=== PATIENT | female | born 1940 | race Caucasian/White ===

== ENCOUNTER → 2016-03-01 | Outpatient (CLI) | payer BC, OTHER ==
[~2016-03-01] MED LIST: AMPI500C9 PO; CALCTAB5 PO; CARBTAB3 PO; CHOL100027 PO; CLC100 PO; FOLI1TAB7 PO; INDO25CA14 PO; LRS10; PRED-301 PO; PRLSR20 PO; ROTI1DIS2; RXC5 PO; SPIR25TA PO; VITAMIN B12 INJ; VLT500 PO; ZOLE5INJ
[2016-03-01 16:23] LABS: BASO % 0.4 %; BASO ABS # 0.03 K/uL (0-0.2); COMPLETE YES; EOS % 0.6 %; HEMATOCRIT 40.9 % (37-47); IG% 0.4 %; LYMPH ABS # 1.67 K/uL (1.2-3.4); MEAN CORPUSCULAR HEMOGLOBIN 31.9 pg (25-34); MEAN CORPUSCULAR HGB CONC 33.3 g/dl (32-36); MEAN PLATELET VOLUME 10.2 fL (7.4-10.4); MONO % 4.9 %; NEUT % 73.7 %; PLATELET COUNT 230 K/uL (130-400); RED BLOOD COUNT 4.26 M/uL (4.2-5.4); WHITE BLOOD COUNT 8.37 K/uL (4.8-10.8)
[2016-03-01 16:34] LABS: BLOOD UREA NITROGEN 22 mg/dl (7-18); BUN/CREATININE RATIO 19.7 (10-20); CALCIUM 9.1 mg/dl (8.5-10.1); CARBON DIOXIDE 27 mmol/L (21-32); CHLORIDE 107 mmol/L (98-107); GLUCOSE 110 mg/dl (70-99); POTASSIUM 4.2 mmol/L (3.5-5.1); SODIUM 142 mmol/L (136-145)
[2016-03-02 07:12] LABS: ESTIMATED AVERAGE GLUCOSE 117 mg/dl; HA1C FLAG Normal (Normal)
== END | disposition home or self-care (01) ==
LOC: C.LAB1850 14:52
PROVIDERS: ATTEND Internal Medicine
DX: R73.9 Hyperglycemia, unspecified (principal); D51.0 Vitamin B12 deficiency anemia due to intrinsic factor deficiency

== ENCOUNTER → 2016-04-21 | Outpatient (CLI) | payer BC, OTHER ==
--- NOTE | 2016-04-21 16:37 | MAMMOGRAPHY REPORT ---
BILATERAL DIGITAL SCREENING MAMMOGRAM WITH CAD: 04/21/2016 CLINICAL HISTORY: Routine screening. Patient has no complaints. TECHNIQUE: Current study was also evaluated with a Computer Aided Detection (CAD) system. Bilatera l CC and MLO views were obtained. COMPARISON: Comparison is made to exams dated: 04/19/2015 mammogram, 12/12/2012 mammogram, 07/06/2010 m ammogram, and 04/08/2009 mammogram - [facility]. BREAST COMPOSITION: There are scattered areas of fibroglandular density in both breasts. FINDINGS: The exam is markedly suboptimal due to the patient's physical condition including being wh eelchair bound; the patient had to be held for all views. The MLO views in particular are suboptima l with nonvisualization of the pectoralis muscles and motion artifact. No suspicious masses, calcifi cations, or areas of architectural distortion are noted in either breast. There has been no signific ant interval change compared to prior exams. Bilateral benign-appearing calcifications are not sign ificantly changed. IMPRESSION: ACR BI-RADS CATEGORY 2: BENIGN Suboptimal exam as described above. There is no mammographic evidence of malignancy. A 1 year scree rosalind mammogram is recommended. The patient will receive written notification of the results. Approximately 10% of breast cancers are not detected with mammography. A negative mammographic repor t should not delay biopsy if a clinically suggestive mass is present. Nikki Cruz M.D. ah/:04/21/2016 15:49:10 Attending Technologist: Albaro Kennedy RT(R)(M), [facility] Income Auditor: Swathi Mccarthy RT(R)(M), [facility] letter sent: Normal 1/2 BI-RADS Code: ACR BI-RADS Category 2: Benign
== END | disposition home or self-care (01) ==
LOC: C.MAMM 14:05
PROVIDERS: ATTEND Internal Medicine
DX: Z12.31 Encounter for screening mammogram for malignant neoplasm of breast (principal)

== ENCOUNTER → 2016-06-16 | Outpatient (CLI) | payer BC, OTHER ==
[2016-06-16 12:45] LABS: URINE APPEARANCE CLEAR (CLEAR); URINE BILIRUBIN NEG (NEG); URINE COLOR DK YELLOW; URINE NITRITE NEG (NEG); URINE PH 6.5 (4.5-7.5); UROBILINOGEN NEG (NEG)
[2016-06-16 12:52] LABS: MANUAL MICROSCOPIC REQUIRED? NO; REVIEW REQ? NO
== END | disposition home or self-care (01) ==
LOC: C.LAB1850 06-15 14:37
PROVIDERS: ATTEND Physician Assistant
DX: R35.0 Frequency of micturition (principal)

== ENCOUNTER → 2016-06-27 | Outpatient (CLI) | payer BC, OTHER ==
[2016-06-27 16:16] LABS: BLOOD UREA NITROGEN 20 mg/dl (7-18); CALCIUM 8.7 mg/dl (8.5-10.1); CARBON DIOXIDE 30 mmol/L (21-32); CHLORIDE 108 mmol/L (98-107); GLUCOSE 105 mg/dl (70-99); POTASSIUM 3.9 mmol/L (3.5-5.1); SODIUM 143 mmol/L (136-145)
== END | disposition home or self-care (01) ==
LOC: C.LAB1850 14:58
PROVIDERS: ATTEND Physician Assistant
DX: M81.0 Age-related osteoporosis without current pathological fracture (principal); R35.0 Frequency of micturition

== ENCOUNTER → 2016-09-04 | Outpatient (CLI) | payer BC, OTHER ==
[2016-09-04 09:29] LABS: BASO % 0.1 %; BASO ABS # 0.01 K/uL (0-0.2); COMPLETE YES; EOS % 0.3 %; IG% 0.3 %; LYMPH % 20.9 %; MEAN CELL VOLUME 97.6 fL (80-100); MEAN CORPUSCULAR HEMOGLOBIN 33.3 pg (25-34); MEAN CORPUSCULAR HGB CONC 34.1 g/dl (32-36); MEAN PLATELET VOLUME 10.2 fL (7.4-10.4); MONO % 4.6 %; NEUT % 73.8 %; PLATELET COUNT 232 K/uL (130-400); WHITE BLOOD COUNT 7.67 K/uL (4.8-10.8)
[2016-09-04 09:56] LABS: BLOOD UREA NITROGEN 20 mg/dl (7-18); BUN/CREATININE RATIO 21.3 (10-20); CALCIUM 9.1 mg/dl (8.5-10.1); CARBON DIOXIDE 26 mmol/L (21-32); CHLORIDE 105 mmol/L (98-107); CHOLESTEROL 204 mg/dl (0-200); CREATININE 0.96 mg/dl (0.60-1.20); GLUCOSE 86 mg/dl (70-99); POTASSIUM 3.8 mmol/L (3.5-5.1); SODIUM 137 mmol/L (136-145); TRIGLYCERIDES 146 mg/dl (0-150); VERY LOW DENSITY LIPOPROT CALC 29 mg/dl
[2016-09-04 10:03] LABS: ESTIMATED AVERAGE GLUCOSE 108 mg/dl; HA1C FLAG Normal (Normal)
[2016-09-04 10:07] LABS: CHOLESTEROL/HDL RATIO 5.2; HDL CHOLESTEROL 39 mg/dl; LDL CHOLESTEROL CALCULATED 136 mg/dl
--- NOTE | 2016-09-08 12:45 | CODING QUERY MEDICAL NECESSITY ---
SUPPORTING DIAGNOSIS NEEDED Dr. Cedeño, A supporting diagnosis is required for the test/procedure performed on this patient in order for us to be reimbursed by the patient's insurance. Please provide a supporting diagnosis for the following test/procedure listed below next to the test name along with your signature. *If there is no additional diagnosis for this patient that would support the following test/procedure please document that below next to the test/procedure. Test(s)/Procedure(s) that require a supporting diagnosis: * 12537 GLYCATED HEMOGLOBIN DIAGNOSIS: DATE OF SERVICE: 09/04/16 Provider Signature: Date: Thank you Curt Castañeda [facility] Once completed, please kindly fax back to [phone] For questions please call [phone]
== END | disposition home or self-care (01) ==
LOC: C.LAB1850 08:37
PROVIDERS: ATTEND Internal Medicine
DX: G82.50 Quadriplegia, unspecified (principal); R73.9 Hyperglycemia, unspecified

== ENCOUNTER → 2017-04-25 | Outpatient (CLI) | payer BC, OTHER ==
[~2017-04-25] MED LIST changes: -FOLI1TAB7 PO; +FOLI1TAB8 PO
== END | disposition home or self-care (01) ==
LOC: C.RDSM 17:54
PROVIDERS: ATTEND Physical Medicine & Rehabilitation Sports Medicine
DX: M25.621 Stiffness of right elbow, not elsewhere classified (principal); M25.511 Pain in right shoulder

== ENCOUNTER → 2017-05-15 | Outpatient (CLI) | payer BC, OTHER ==
--- NOTE | 2017-05-17 08:00 | MAMMOGRAPHY REPORT ---
BILATERAL DIGITAL SCREENING MAMMOGRAM WITH CAD: 05/15/2017 CLINICAL HISTORY: Routine screening. Patient has no complaints. TECHNIQUE: Bilateral CC and MLO 2D mammograms were attempted. The exam is markedly suboptimal as the patient is wheelchair-bound and could not adequately position for the views, particularly the MLO vi ews. Current study was also evaluated with a Computer Aided Detection (CAD) system. COMPARISON: Comparison is made to exams dated: 04/21/2016 mammogram, 12/12/2012 mammogram, 08/22/2011 m ammogram, 07/06/2010 mammogram, and 04/08/2009 mammogram - [facility]. BREAST COMPOSITION: The tissue of both breasts is heterogeneously dense, which may obscure small mas ses. FINDINGS: The exam is markedly suboptimal due to inability of the patient to adequately position for the views, lacking visualization of large amounts of posterior tissue. Within these limitations, the re are benign rim calcifications and mild vascular calcifications in both breasts. No obvious new ma ss, architectural distortion or cluster of suspicious microcalcifications is seen. IMPRESSION: ACR BI-RADS CATEGORY 1: NEGATIVE There is no mammographic evidence of malignancy, within the limitations of the exam, detailed above. A 1 year screening mammogram is recommended. The patient will receive written notification of the re sults. Approximately 10% of breast cancers are not detected with mammography. A negative mammographic report should not delay biopsy if a clinically suggestive mass is present. Tammie Gorman M.D. ay/:05/15/2017 14:25:57 Computational Linguist: Anisa GRAFF(R)(M), [facility] letter sent: Normal 1/2 BI-RADS Code: ACR BI-RADS Category 1: Negative
== END | disposition home or self-care (01) ==
LOC: C.MAMM 13:29
PROVIDERS: ATTEND Internal Medicine
DX: Z12.31 Encounter for screening mammogram for malignant neoplasm of breast (principal)

== ENCOUNTER → 2017-06-25 | Outpatient (CLI) | payer BC, OTHER | END | disposition home or self-care (01) | LOC: C.MAMM 11:21 | PROVIDERS: ATTEND Internal Medicine | DX: M19.90 Unspecified osteoarthritis, unspecified site (principal); Z79.52 Long term (current) use of systemic steroids; M85.80 Other specified disorders of bone density and structure, unspecified site ==

== ENCOUNTER → 2017-06-25 | Outpatient (CLI) | payer BC, OTHER ==
[2017-06-25 09:50] LABS: HEMATOCRIT 43.8 % (37-47); HEMOGLOBIN 14.7 g/dL (12.0-16.0); MEAN CELL VOLUME 97.3 fL (80-100); MEAN CORPUSCULAR HEMOGLOBIN 32.7 pg (25-34); MEAN CORPUSCULAR HGB CONC 33.6 g/dl (32-36); MEAN PLATELET VOLUME 10.2 fL (7.4-10.4); PLATELET COUNT 214 K/uL (130-400); RED CELL DISTRIBUTION WIDTH CV 16.3 % (11.5-14.5); RED CELL DISTRIBUTION WIDTH SD 58.2 fL (36.4-46.3)
[2017-06-25 10:12] LABS: ALBUMIN 3.4 gm/dl (3.4-5.0); ALKALINE PHOSPHATASE 68 U/L (45-117); ALT/SGPT 7 U/L (12-78); AST/SGOT 14 U/L (15-37); BLOOD UREA NITROGEN 18 mg/dl (7-18); CALCIUM 8.9 mg/dl (8.5-10.1); CARBON DIOXIDE 28 mmol/L (21-32); CREATININE 0.99 mg/dl (0.60-1.20); GLUCOSE 91 mg/dl (70-99); SODIUM 137 mmol/L (136-145)
== END | disposition home or self-care (01) ==
LOC: C.LAB1850 08:05
PROVIDERS: ATTEND Internal Medicine
DX: L40.50 Arthropathic psoriasis, unspecified (principal); Z79.899 Other long term (current) drug therapy

== ENCOUNTER → 2017-08-22 | Outpatient (CLI) | payer BC, OTHER ==
--- NOTE | 2017-08-22 17:54 | DIAGNOSTIC IMAGING REPORT ---
C-SPINE ROUTINE 4 OR 5 VIEWS HISTORY: Pain. Neuropathy. M54.12 Cervical radiculopathy at C5 COMPARISON: None. FINDINGS: Findings of complete laminectomy and fusion throughout the complete cervical spine. Extensive corpectomy is present. Vertebral body alignment is anatomic. No significant compromise of the spinal canal. Postoperative changes to the mandible. There is no fracture. No subluxation. Prevertebral soft tissues and the atlantodens interval are intact. IMPRESSION: Extensive postoperative changes consistent with a near complete laminectomy and fusion as well as corpectomy of the cervical spine. No acute process. The above report was generated using voice recognition software. It may contain grammatical, syntax or spelling errors. Electronically signed by: Layo Christie M.D. 08/22/2017 5:53 PM Dictated Date/Time: 08/22/2017 5:51 PM
== END | disposition home or self-care (01) ==
LOC: C.RAD 17:18
PROVIDERS: ATTEND Psychiatry & Neurology Neurology
DX: M54.12 Radiculopathy, cervical region (principal)

== ENCOUNTER → 2017-08-31 | Outpatient (CLI) | payer BC, OTHER | END | disposition home or self-care (01) | LOC: C.LAB 18:49 | PROVIDERS: ATTEND Internal Medicine | DX: N23 Unspecified renal colic (principal) ==

== ENCOUNTER → 2017-09-06 | Outpatient (CLI) | payer BC, OTHER ==
--- NOTE | 2017-09-06 15:34 | DIAGNOSTIC IMAGING REPORT ---
R SHOULDER MIN 2 VIEWS ROUTINE CLINICAL HISTORY: W19.XXXA right shoulder pain status post trauma COMPARISON: April 2017 DISCUSSION: The examination is limited from a technical standpoint. The bones are osteopenic. There is subtle cortical irregularity the humeral head. Nondisplaced fracture cannot be excluded. CT scanning is recommended in follow-up to confirm or refute the presence of a fracture. There are postsurgical changes present within the cervical spine. There is no evidence of dislocation. IMPRESSION: Equivocal nondisplaced humeral head fracture. CT scanning is recommended in follow-up. Electronically signed by: Harry Avendaño M.D. 09/06/2017 3:33 PM Dictated Date/Time: 09/06/2017 3:29 PM
== END | disposition home or self-care (01) ==
LOC: C.RAD1850 15:18
PROVIDERS: ATTEND Physician Assistant
DX: S42.201A Unspecified fracture of upper end of right humerus, initial encounter for closed fracture (principal); W19.XXXA Unspecified fall, initial encounter

== ENCOUNTER → 2017-09-18 | Outpatient (CLI) | payer BC, OTHER ==
[2017-09-18 15:55] LABS: BASO % 0.1 %; BASO ABS # 0.01 K/uL (0-0.2); EOS % 0.1 %; EOS ABS # 0.01 K/uL (0-0.5); HEMATOCRIT 41.7 % (37-47); HEMOGLOBIN 13.8 g/dL (12.0-16.0); IG# 0.05 K/uL (0.00-0.02); LYMPH % 11.5 %; LYMPH ABS # 0.89 K/uL (1.2-3.4); MEAN CELL VOLUME 98.8 fL (80-100); MEAN CORPUSCULAR HEMOGLOBIN 32.7 pg (25-34); MEAN CORPUSCULAR HGB CONC 33.1 g/dl (32-36); MEAN PLATELET VOLUME 10.5 fL (7.4-10.4); MONO % 2.9 %; MONO ABS # 0.22 K/uL (0.11-0.59); NEUT % 84.8 %; NEUT ABS # 6.53 K/uL (1.4-6.5); PLATELET COUNT 203 K/uL (130-400); RED CELL DISTRIBUTION WIDTH CV 16.7 % (11.5-14.5); WHITE BLOOD COUNT 7.71 K/uL (4.8-10.8)
[2017-09-18 16:18] LABS: ALBUMIN 3.4 gm/dl (3.4-5.0); ALKALINE PHOSPHATASE 104 U/L (45-117); ALT/SGPT 8 U/L (12-78); AST/SGOT 11 U/L (15-37); CREATININE 1.03 mg/dl (0.60-1.20)
== END | disposition home or self-care (01) ==
LOC: C.LAB1850 14:17
PROVIDERS: ATTEND Internal Medicine Rheumatology
DX: L40.50 Arthropathic psoriasis, unspecified (principal); Z79.899 Other long term (current) drug therapy; M81.0 Age-related osteoporosis without current pathological fracture; K21.9 Gastro-esophageal reflux disease without esophagitis; S42.291A Other displaced fracture of upper end of right humerus, initial encounter for closed fracture; X58.XXXA Exposure to other specified factors, initial encounter

== ENCOUNTER 2019-01-28 19:38 | Inpatient (IN) ==
[2019-01-28] MEDS ORDERED: SODIUM CHLORIDE 0.9% 500 ML IV ONE (19:57)
[2019-01-28] MEDS ORDERED: PIPERACILL/TAZOBAC CONSULT ACTIVE PRN ×2 (20:00→23:47)
[2019-01-28] MEDS: PIPERACILLIN/TAZOBACTAM 4.5 GM/120 ML BAG IV ONE ×2 (20:18→20:44)
--- NOTE | 2019-01-28 20:20 | XRay Report ---
SINGLE VIEW CHEST CLINICAL HISTORY: Sepsis. FINDINGS: An AP, portable, upright chest radiograph is compared to chest x-ray and chest CT dated . The examination is degraded by portable technique and patient rotation. The heart is enlarg ed noting atherosclerotic calcification of the thoracic aorta. There is mild pulmonary vascular conge stion. Scarring/atelectasis is noted at the lung bases and there is mild chronic elevation of right h emidiaphragm. No airspace consolidation or large pleural effusion is identified. No pneumothorax is s een. The skeletal structures are osteopenic. There are healed left-sided rib fractures. Extensive fus ion hardware is noted in the cervical spine. Degenerative change is noted in the thoracic spine and s houlders. IMPRESSION: 1. Cardiomegaly with evidence of mild congestive failure. 2. No airspace consolidation or large pleural effusion is identified. ACT 112: Negative or not required by law. Electronically signed by: Pedro Lazo M.D. 01/28/2019 8:18 PM
[2019-01-28] MEDS ORDERED: ALBUTEROL 0.083% NEBU SOLN 3 ML VIAL NEB STA (20:39)
--- NOTE | 2019-01-28 20:46 | Emergency Department Note ---
Entered by Charu Cline acting as a scribe for History of Present Illness General Chief complaint: Illness Stated complaint: AMS - PARKINSONS Time Seen by Provider: 01/28/19 19:46 Source: patient and family History of Present Illness Provider complaint: Confusion Onset (ago): hour(s) 6 Location: head (confusion ) and mouth (cough) Pain Consistency: + constant Quality: + constant Associated symptoms: + confusion, + cough and + other (Negative: trouble speaking, trouble with vision ); no chest pain and no headaches The patient is a 78 year old female with past medical history of Parkinson disease, arthritis, HTN, hyperglycemia, anemia, who presents to the ED with complaints of constant confusion that started 6 hours ago. The patients reports the patient has been having a cough since last Sunday. He notes they went to the doctor and they ruled out pneumonia. The reports the patient took Tussin DM for cough today. He states that around 2 oclock today he noticed his was moving around pretty crazy and told him she was having a baby. The patient denies headache, chest pain, trouble speaking, or trouble with vision. . Home Medications Home Medications Medication Instructions Recorded Confirmed Type baclofen 10 mg PO TID 07/29/18 01/28/19 History cyanocobalamin (vitamin B-12) 1,000 mcg IM DIRECTED 07/29/18 01/28/19 History folic acid 1 mg PO QAM 07/29/18 01/28/19 History omeprazole 20 mg PO QAM 07/29/18 01/28/19 History prednisone 5 mg PO QAM 07/29/18 01/28/19 History spironolactone 25 mg PO QAM 07/29/18 01/28/19 History zoledronic tunp-sltdrdku-opryr 5 mg IV DIRECTED 07/29/18 01/28/19 History [Reclast] valacyclovir 500 mg tablet 500 mg PO QAM #90 tab 10/08/18 01/28/19 Rx methotrexate sodium 2.5 mg tablet 17.5 mg PO WEEKLY #84 tab 11/27/18 01/28/19 Rx nitrofurantoin macrocrystal 50 mg 50 mg PO DAILY #60 cap 12/19/18 01/28/19 Rx capsule calcium citrate-vitamin D3 1 tab PO QAM 01/28/19 01/28/19 History [Citracal + D Petites] eemhsuewz-xvqmnktd-pxzxufnoit 1 tab PO 5XD 01/28/19 01/28/19 History [Stalevo 150] cholecalciferol (vitamin D3) 2,000 unit PO BID 01/28/19 01/28/19 History [Vitamin D3] rotigotine [Neupro] 4 mg TRANSDERMAL DAILY 01/28/19 01/28/19 History Allergies Allergy/AdvReac Type Severity Reaction Status Date / Time tetracycline Allergy Mild RASH Verified 01/22/19 15:33 Cephalosporins Allergy Unknown BLOOD Verified 01/22/19 15:33 BLISTERS lactose Allergy Unknown Gastrointestinal Verified 01/22/19 15:33 Upset lanolin Allergy Unknown BURNING Verified 01/22/19 15:33 shellfish derived Allergy Unknown SOB, Verified 01/22/19 15:33 SWELLING nitrofurantoin AdvReac Intermediate GI Verified 01/22/19 15:33 SYMPTOMS-ON OCC cefuroxime AdvReac Unknown G I UPSET Verified 01/22/19 15:33 cinnamon AdvReac Unknown IN RAW Verified 01/22/19 15:33 FORM CAUSES GI UPSET Quinolones AdvReac Unknown "GI Verified 01/22/19 15:33 symptoms" Sulfa (Sulfonamide AdvReac Unknown "GI Verified 01/22/19 15:33 Antibiotics) SYMPTOMS" Past Med/Surg History Medical History Chronic steroid use DAILY X MANY YRS GERD (gastroesophageal reflux disease) Hypotension Osteoporosis Parkinson disease Psoriatic arthritis SOB (shortness of breath) on exertion LIMITED AMBULATION DUE TO PARKINSON'S Stomach ulcer HX-UNDER CONTROL UTI (urinary tract infection) (Resolved) Surgical History H/O elbow surgery RIGHT-RELEASE OF TENDONS History of back surgery CERVICAL X 2-DISECTOMY/RODS PLACEMENT History of cataract surgery LEFT. 08/27/2018. 40mg PROPOFOL GIVEN History of colonoscopy X MULTIPLE History of esophagogastroduodenoscopy (EGD) History of laparotomy OVARIAN CYSTECTOMY Family History Mother Family history of diabetes mellitus Social History Preferred Language: Venezuelan Communication Ability: Effective Fly Frame Tender Required: No Beliefs That Will Affect Care: None Current Living Situation: Spouse Feels Safe at Home: Yes Smoking Status: Never smoker Second Hand Exposure: Yes (MOTHER SMOKED) ; Hx Alcohol Use: Yes (RARELY) Alcohol type: hard liquor Hx Substance Use: No Review of Systems See HPI for pertinent positives & negatives. and A total of 10 systems reviewed and were otherwise negative Physical Exam Vital Signs Vital Signs - 24 hr 01/28/19 19:39 01/28/19 20:17 01/28/19 20:25 Temperature 36.3 C L Temperature Source Oral Pulse Rate 117 H Pulse Rate [Right Finger] 104 H Pulse Rhythm [Right Finger] Regular Pulse Strength [Right Finger] Normal Respiratory Rate 22 30 H 30 H Respiratory Effort / Characteristics Spontaneous Labored Short of Breath Spontaneous Labored Short of Breath Respiratory Depth Normal Normal Respiratory Pattern Tachypnea Tachypnea Blood Pressure [Right Arm] Blood Pressure [Right Thigh] 153/91 H Blood Pressure Mean [Right Arm] Blood Pressure Mean [Right Thigh] 111 Blood Pressure Position [Right Arm] Blood Pressure Position [Right Thigh] Lying Pulse Oximetry 89 L 88 L 93 Oxygen Delivery Method Room Air Room Air Nasal Cannula Oxygen Flow Rate 4 Sepsis Recent Fever Within 48 Hours No Sepsis Action Taken by Nursing No Action Required 01/28/19 20:49 01/28/19 21:18 Temperature Temperature Source Pulse Rate Pulse Rate [Right Finger] 91 H 87 Pulse Rhythm [Right Finger] Regular Pulse Strength [Right Finger] Normal Respiratory Rate 24 20 Respiratory Effort / Characteristics Non-Labored Spontaneous Non-Labored Spontaneous Respiratory Depth Normal Respiratory Pattern Regular Blood Pressure [Right Arm] 102/48 L Blood Pressure [Right Thigh] Blood Pressure Mean [Right Arm] 66 Blood Pressure Mean [Right Thigh] Blood Pressure Position [Right Arm] Lying Blood Pressure Position [Right Thigh] Pulse Oximetry 95 97 Oxygen Delivery Method Nasal Cannula Nasal Cannula Oxygen Flow Rate 4 2 Sepsis Recent Fever Within 48 Hours Sepsis Action Taken by Nursing General: Chronically-ill appearing older female in no acute distress. Responds appropriately to most questions. Mildly confused. HEENT: Normal cephalic atraumatic. Pupils are equal round and reactive to light. Extraocular movements are intact. Oropharynx is pink with moist mucous me mbranes. No swelling of the mouth lips or tongue. Neck: Supple with a midline trachea. No meningeal signs or stiffness, no JVD or bruits. No Stridor. Chest: Clear to auscultation bilaterally. No wheezes or rhonchi. No increased work of breathing. Heart: regular rate and rhythm. Abdomen: Soft nontender, nondistended without rebound guarding or rigidity. Extremities: No cyanosis clubbing or edema. No calf tenderness or asymmetry Spine/Back. Non tender to palpation. No CVA tenderness Skin: Good turgor without rashes. Neurologic exam: Cranial nerves two through 12 are intact. Motor and sensation are intact and symmetrical throughout. Baseline Parkinson's and arthritis but moves all extremities symmetrically. Course Course 1946: The patient was evaluated in room A11B. A complete history and physical exam was performed. 2001: I checked on the patient. It is difficult to get a blood pressure due to the patient thrashing and moving from Parkinson disease. 2019: I checked on the patient. The chest x-ray suggests possible CHF so we cut the fluids down to only 250 rather than 500. The patient will be given a nebulizer. 2039: I checked on the patient and she got her blood work done. The patient received a nebulizer and antibiotics. 2105: I checked on the patient and she looks much better. The patient is calm and her vitals are stable. 2126: I discussed the patients case with Dr. Shanks. He will evaluate the patient for further management. Administered Medications Discontinued Medications Albuterol (Ventolin 0.083% 2.5mg/3ml) 2.5 mg NEB NOW STA Stop: 01/28/19 20:40 Last Admin: 01/28/19 20:46 Dose: 2.5 mg Documented by: [id number] Sodium Chloride (Nss) 500 mls @ 999 mls/hr IV .Q31M ONE Stop: 01/28/19 20:27 Last Infusion: 01/28/19 21:29 Dose: 0 mls/hr Documented by: [id number] Admin: 01/28/19 20:18 Dose: 999 mls/hr Documented by: [id number] Piperacillin Sod/Tazobactam Sod (Zosyn) 4.5 gm in 120 mls @ 240 mls/hr IV NOW ONE Stop: 01/28/19 20:29 Last Infusion: 01/28/19 21:18 Dose: 0 mls/hr Documented by: [id number] Admin: 01/28/19 20:44 Dose: 240 mls/hr Documented by: [id number] Critical Care Time Critical Care Time: Yes Total Critical Care Time: 35 I have personally spent greater than 35 minutes of critical care time in the direct management of this patient. This includes bedside care, interpretation of diagnostic studies, and testing, discussion with consultants, patient, and family members, and other required patient management activities. This 35 minutes is in excess of all separately billable procedures. Medical Decision Making Differential Diagnosis Differential Diagnosis: Sepsis, CHF, influenza, pneumonia, interracial process,, electrolyte and metabolic abnormality Medical Records Attestation: I reviewed the patient's medical records. Home Medications Current Medication List: was personally reviewed by me Laboratory Data Attestation: I reviewed the patient's lab results. Result diagrams: 01/28/19 20:40 01/28/19 20:40 Lab Results 01/28/19 01/28/19 01/28/19 Range/Units 20:24 20:40 20:40 WBC 7.79 (4.8-10.8) K/uL RBC 3.85 L (4.2-5.4) M/uL Hgb 12.9 (12.0-16.0) g/dL Hct 39.0 (37-47) % MCV 101.3 H (80-100) fL MCH 33.5 (25-34) pg MCHC 33.1 (32-36) g/dL RDW Std Deviation 56.7 H (36.4-46.3) fL RDW Coeff of Chandra 15.6 H (11.5-14.5) % Plt Count 178 (130-400) K/uL MPV 9.2 (7.4-10.4) fL Immature Gran % (Auto) 0.3 % Neut % (Auto) 89.6 % Lymph % (Auto) 5.1 % Sterling % (Auto) 4.7 % Eos % (Auto) 0.0 % Baso % (Auto) 0.3 % Immature Gran # (Auto) 0.02 (0.00-0.02) K/uL Neut # (Auto) 6.98 H (1.4-6.5) K/uL Lymph # (Auto) 0.40 L (1.2-3.4) K/uL Sterling # (Auto) 0.37 (0.11-0.59) K/uL Eos # (Auto) 0.00 (0-0.5) K/uL Baso # (Auto) 0.02 (0-0.2) K/uL PT 10.7 (9.0-12.0) Seconds INR 1.0 (0.9-1.1) APTT 25.6 (21.0-31.0) Seconds PTT Ratio 0.9 Sodium (136-145) mmol/L Potassium (3.5-5.1) mmol/L Chloride (98-107) mmol/L Carbon Dioxide (21-32) mmol/L Anion Gap (3-11) BUN (7-18) mg/dl Creatinine (0.6-1.2) mg/dl Est Cr Clr Drug Dosing Est GFR ( Amer) Est GFR (Non-Af Amer) BUN/Creatinine Ratio (10-20) Glucose (70-99) mg/dl Lactate (0.4-2.0) mmol/L Calcium (8.5-10.1) mg/dl Total Bilirubin (0.2-1) mg/dl AST (15-37) U/L ALT (12-78) U/L Alkaline Phosphatase (45-117) U/L Total Protein (6.4-8.2) gm/dl Albumin (3.4-5.0) gm/dl Globulin (2.5-4.0) gm/dl Albumin/Globulin Ratio (0.9-2) Influenza Type A (PCR) Neg for Influ A (Neg) Influenza Type B (PCR) Neg for Influ B (Neg) 01/28/19 01/28/19 Range/Units 20:40 20:40 WBC (4.8-10.8) K/uL RBC (4.2-5.4) M/uL Hgb (12.0-16.0) g/dL Hct (37-47) % MCV (80-100) fL MCH (25-34) pg MCHC (32-36) g/dL RDW Std Deviation (36.4-46.3) fL RDW Coeff of Chandra (11.5-14.5) % Plt Count (130-400) K/uL MPV (7.4-10.4) fL Immature Gran % (Auto) % Neut % (Auto) % Lymph % (Auto) % Sterling % (Auto) % Eos % (Auto) % Baso % (Auto) % Immature Gran # (Auto) (0.00-0.02) K/uL Neut # (Auto) (1.4-6.5) K/uL Lymph # (Auto) (1.2-3.4) K/uL Sterling # (Auto) (0.11-0.59) K/uL Eos # (Auto) (0-0.5) K/uL Baso # (Auto) (0-0.2) K/uL PT (9.0-12.0) Seconds INR (0.9-1.1) APTT (21.0-31.0) Seconds PTT Ratio Sodium 138 (136-145) mmol/L Potassium 4.4 (3.5-5.1) mmol/L Chloride 106 (98-107) mmol/L Carbon Dioxide 29 (21-32) mmol/L Anion Gap 3.0 (3-11) BUN 28 H (7-18) mg/dl Creatinine 1.28 H (0.6-1.2) mg/dl Est Cr Clr Drug Dosing Not Reportable Est GFR ( Amer) 47.0 Est GFR (Non-Af Amer) 40.6 BUN/Creatinine Ratio 21.9 H (10-20) Glucose 148 H (70-99) mg/dl Lactate 1.8 (0.4-2.0) mmol/L Calcium 9.3 (8.5-10.1) mg/dl Total Bilirubin 0.7 (0.2-1) mg/dl AST 15 (15-37) U/L ALT < 6 L (12-78) U/L Alkaline Phosphatase 66 (45-117) U/L Total Protein 6.8 (6.4-8.2) gm/dl Albumin 3.2 L (3.4-5.0) gm/dl Globulin 3.6 (2.5-4.0) gm/dl Albumin/Globulin Ratio 0.9 (0.9-2) Influenza Type A (PCR) (Neg) Influenza Type B (PCR) (Neg) Imaging Data Radiologist's Impression: Radiology results as stated below per my review and the radiologist's interpretation: SINGLE VIEW CHEST CLINICAL HISTORY: Sepsis. FINDINGS: An AP, portable, upright chest radiograph is compared to chest x-ray and chest CT dated 01/22/2019. The examination is degraded by portable technique and patient rotation. The heart is enlarged noting atherosclerotic calci fication of the thoracic aorta. There is mild pulmonary vascular congestion. Scarring/atelectasis is noted at the lung bases and there is mild chronic elevation of right hemidiaphragm. No airspace consolidation or large pleural effusion is identified. No pneumothorax is seen. The skeletal structures are osteopenic. There are healed left-sided rib fractures. Extensive fusion hardware is noted in the cervical spine. Degenerative change is noted in the thoracic spine and shoulders. IMPRESSION: 1. Cardiomegaly with evidence of mild congestive failure. 2. No airspace consolidation or large pleural effusion is identified. ACT 112: Negative or not required by law. Electronically signed by: Pedro Lazo M.D. 01/28/2019 8:18 PM ECG Data Attestation: I personally reviewed and interpreted this ECG as follows: Indication: + altered mental status Rate (beats per minute): 106 Rhythm: + sinus tachycardia ECG Findings: + Other (Poor baseline, nonspecific T-wave abnormality ) Comparison ECG Date: from (07/07/2015) Change: the following changes noted (the rate has increased ) Blood Pressure Additional Comments: BP could not be taken by nursing due to difficulty secondary to the patient thrashing and moving from Parkinson disease. MDM Narrative This patient comes in as described above. She has Parkinson's disease and has had increasing shakiness and some confusion. she has had upper respiratory symptoms for last week or so she tried a Z-Benito but could not tolerate the azithromycin. She has an inhaler but did not use it. She is difficult to evaluate and get vital signs on doing to her Parkinson's disease and her movements. They could not get a blood pressure in triage but we did check it back in the room it was 153. She does appear to be somewhat hypoxemic and was placed on oxygen and is in the 90s with this. She does have some yellowish nasal discharge. A full sepsis work-up was obtained. Her chest x-ray shows no focal infiltrates there is suggestion for possible CHF and in light of this we only gave her some gentle fluids with 250 cc IV, her does feel that she is been dehydrated not been drinking and clinically I do think she is likely dry but wanted to give her judicious fluids. She was given Zosyn 4.5 g IV after we reviewed this with her ED pharmacist she has had Augmentin before. She was given albuterol neb because she does sound wheezy at times. The albuterol actually seemed to help her greatly. He has no white count or elevation of her lactic acid. She has some mild renal insufficiency but otherwise no significant atrial or metabolic abnormalities flu swab was negative. I think most likely she does have a bronchitis/URI which is exacerbating her Parkinson's. I am concerned that she could be septic as well as she is difficult to evaluate due to her Parkinson's. I have consulted Dr. Bolaños to see her in the ER for admission/observation. Impression & Plan Sepsis, Parkinson disease, Altered mental status, URI (upper respiratory infection) Discharge Plan Visit Data Chief Complaint: Illness Stated Complaint: AMS - PARKINSONS ED Provider: Dickson Damon Discharge Problem: Sepsis, Parkinson disease, Altered mental status, URI (upper respiratory infection) Patient Disposition: Being Evaluated by Hospitalist Forms Stand Alone Forms: My [facility] Prescriptions Prescriptions: No Action valacyclovir 500 mg tablet 500 mg PO QAM Qty: 90 RF: 3 methotrexate sodium 2.5 mg tablet 17.5 mg PO WEEKLY Qty: 84 RF: 1 nitrofurantoin macrocrystal [Macrodantin] 50 mg capsule 50 mg PO DAILY Qty: 60 RF: 1 baclofen 10 mg Tablet 10 mg PO TID RF: 0 prednisone 5 mg Tablet 5 mg PO QAM RF: 0 spironolactone 25 mg Tablet 25 mg PO QAM RF: 0 folic acid 1 mg Tablet 1 mg PO QAM RF: 0 omeprazole 20 mg Tablet,Delayed Release (Dr/Ec) 20 mg PO QAM RF: 0 zoledronic lbzu-msgylvtq-ksydv [Reclast] 5 mg/100 mL Piggyback 5 mg IV DIRECTED RF: 0 cyanocobalamin (vitamin B-12) 1,000 mcg/mL Kit 1,000 mcg IM DIRECTED RF: 0 bymlouwyk-lrkpbgao-vfwkmpbvec [Stalevo 150] 37.5-150-200 mg Tablet 1 tab PO 5XD RF: 0 Neupro 4 mg/24 hour patch 24 hour 4 mg transdermal DAILY RF: 0 cholecalciferol (vitamin D3) [Vitamin D3] 1,000 unit Tablet,Chewable 2,000 unit PO BID RF: 0 calcium citrate-vitamin D3 [Citracal + D Petites] 200 mg calcium -250 unit Tablet 1 tab PO QAM RF: 0 Referrals Referrals: Mando Cedeño MD [Primary Care Provider] - Discharge Problem: Sepsis Qualifiers: Sepsis type: sepsis due to unspecified organism Sepsis acute organ dysfunction status: unspecified Qualified Code(s): A41.9 - Sepsis, unspecified organism Altered mental status Qualifiers: Altered mental status type: unspecified Qualified Code(s): R41.82 - Altered mental status, unspecified URI (upper respiratory infection) Qualifiers: URI type: unspecified URI Qualified Code(s): J06.9 - Acute upper respiratory infection, unspecified The scribe's documentation has been prepared under my direction and personally reviewed by me in its entirety. I confirm that the note above accurately reflects all work, treatment, procedures, and medical decision making performed by me.
[2019-01-28 20:49] LABS: Hemoglobin 12.9 g/dL (12.0-16.0); Mean Corpuscular Hemoglobin 33.5 pg (25-34); Mean Corpuscular Hgb Conc 33.1 g/dL (32-36); Mean Corpuscular Volume 101.3 fL (80-100); Mean Platelet Volume 9.2 fL (7.4-10.4); Platelet Count 178 K/uL (130-400); RDW Coefficient of Variation 15.6 % (11.5-14.5); RDW Standard Deviation 56.7 fL (36.4-46.3); Red Blood Count 3.85 M/uL (4.2-5.4); White Blood Count 7.79 K/uL (4.8-10.8)
[2019-01-28 21:03] LABS: Partial Thromboplastin Ratio 0.9; Partial Thromboplastin Time 25.6 Seconds (21.0-31.0); Prothrombin Time 10.7 Seconds (9.0-12.0)
[2019-01-28 21:05] LABS: Basophils # (auto) 0.02 K/uL (0-0.2); Basophils % (auto) 0.3 %; Immature Granulocytes # (auto) 0.02 K/uL (0.00-0.02); Immature Granulocytes % (auto) 0.3 %; Lymphocytes % (auto) 5.1 %; Monocytes # (auto) 0.37 K/uL (0.11-0.59); Monocytes % (auto) 4.7 %; Neutrophils # (auto) 6.98 K/uL (1.4-6.5); Neutrophils % (auto) 89.6 %
[2019-01-28 21:08] LABS: Alanine Aminotransferase < 6 U/L (12-78); Albumin Level 3.2 gm/dl (3.4-5.0); Aspartate Aminotransferase 15 U/L (15-37); BUN Creatinine Ratio 21.9 (10-20); Blood Urea Nitrogen 28 mg/dl (7-18); Calcium 9.3 mg/dl (8.5-10.1); Carbon Dioxide 29 mmol/L (21-32); Chloride 106 mmol/L (98-107); Est GFR (Non-African American) 40.6; Glucose 148 mg/dl (70-99); Potassium 4.4 mmol/L (3.5-5.1); Sodium 138 mmol/L (136-145)
[2019-01-28 21:10] LABS: Influenza A virus by PCR Neg for Influ A (Neg); Influenza B virus by PCR Neg for Influ B (Neg)
[2019-01-28 21:11] LABS: Albumin Globulin Ratio 0.9 (0.9-2); Alkaline Phosphatase 66 U/L (45-117); Bilirubin,Total 0.7 mg/dl (0.2-1); Globulin 3.6 gm/dl (2.5-4.0); Total Protein 6.8 gm/dl (6.4-8.2)
--- NOTE | 2019-01-28 21:53 | History & Physical Report ---
Date of Service January 28, 2019 Assessment & Plan (1) Altered mental status: Patient presents with altered mental status, secondary to sepsis, associated with URI and presumptive UTI. Treatment as noted below. Continue Parkinson's meds. The patient is on chronic steroids, and Solu-Medrol will service stress dosing in lieu of hydrocortisone. Present on Admission?: Yes (2) Sepsis: Patient presents with clinical picture of sepsis, with treatment for URI and UTI with IV treatment, and rehydration with IV fluids. Present on Admission?: Yes (3) URI (upper respiratory infection): Patient with significant productive cough, and abnormal lung exam. Placed on Zosyn 4.5 g IV every 8 hours, azithromycin 5 mg IV daily. Solu-Medrol 40 mg IV every 8 hours. Duonebs every 4 hours while awake and every 2 hours when necessary. Sputum Gram stain and culture. Nasal cannula oxygen titrated to keep pulse ox 94 to 95%. Present on Admission?: Yes (4) UTI (urinary tract infection): Presumptive urinary tract infection associated with urinary incontinence. Patient unable to provide urine specimen yet due to dehydration. We will hydrate with IV fluids, obtain urine culture and sensitivity, and in the interim cover with antibiotics. Present on Admission?: Yes (5) GERD (gastroesophageal reflux disease): Continue omeprazole 20 mg p.o. every morning Present on Admission?: Yes (6) HTN (hypertension): Hold spironolactone. Follow blood pressure closely while rehydrating with IV fluids. Present on Admission?: Yes (7) Parkinson disease: Continue usual Parkinson's meds. Present on Admission?: Yes History of Present Illness Chief Complaint: The patient presents to the emergency department, with her present, who provides most of her HPI and ROS. He reports that she has been less able to follow commands during the day, has had more issues with urinary incontinence where he has had to change sheets least 2-3 times daily, and has had a productive cough for the past week or so. Primary Care Provider: Mando Cedeño MD The patient is a 78-year-old female with a past medical history including Parkinson's disease, psoriatic arthritis, hypertension, hyper cholesterolemia, UTI, cervical spondylosis with myelopathy, acute blood loss anemia, GERD and osteoporosis. Her has brought her to the emergency department due to issues with confusion and decreased ability to follow commands, urinary incontinence 2-3 times daily over the past few days, and productive cough over the past week or so. She has not had any recent travels or sick exposures. While in the ED, she continues to be minimally responsive, acknowledging questions, but unable to give answers, and her supplies the HPI and review of systems as noted. Allergies Allergy/AdvReac Type Severity Reaction Status Date / Time tetracycline Allergy Mild RASH Verified 01/22/19 15:33 Cephalosporins Allergy Unknown BLOOD Verified 01/22/19 15:33 BLISTERS lactose Allergy Unknown Gastrointestinal Verified 01/22/19 15:33 Upset lanolin Allergy Unknown BURNING Verified 01/22/19 15:33 shellfish derived Allergy Unknown SOB, Verified 01/22/19 15:33 SWELLING nitrofurantoin AdvReac Intermediate GI Verified 01/22/19 15:33 SYMPTOMS-ON OCC cefuroxime AdvReac Unknown G I UPSET Verified 01/22/19 15:33 cinnamon AdvReac Unknown IN RAW Verified 01/22/19 15:33 FORM CAUSES GI UPSET Quinolones AdvReac Unknown "GI Verified 01/22/19 15:33 symptoms" Sulfa (Sulfonamide AdvReac Unknown "GI Verified 01/22/19 15:33 Antibiotics) SYMPTOMS" Home Medications Home Medications Medication Instructions Recorded Confirmed Type baclofen 10 mg PO TID 07/29/18 01/28/19 History cyanocobalamin (vitamin B-12) 1,000 mcg IM DIRECTED 07/29/18 01/28/19 History folic acid 1 mg PO QAM 07/29/18 01/28/19 History omeprazole 20 mg PO QAM 07/29/18 01/28/19 History prednisone 5 mg PO QAM 07/29/18 01/28/19 History spironolactone 25 mg PO QAM 07/29/18 01/28/19 History zoledronic uhlb-zwxbhjlp-oovwh 5 mg IV DIRECTED 07/29/18 01/28/19 History [Reclast] valacyclovir 500 mg tablet 500 mg PO QAM #90 tab 10/08/18 01/28/19 Rx methotrexate sodium 2.5 mg tablet 17.5 mg PO WEEKLY #84 tab 11/27/18 01/28/19 Rx nitrofurantoin macrocrystal 50 mg 50 mg PO DAILY #60 cap 12/19/18 01/28/19 Rx capsule calcium citrate-vitamin D3 1 tab PO QAM 01/28/19 01/28/19 History [Citracal + D Petites] fpkibggga-gcfqptec-uzzcxxoest 1 tab PO 5XD 01/28/19 01/28/19 History [Stalevo 150] cholecalciferol (vitamin D3) 2,000 unit PO BID 01/28/19 01/28/19 History [Vitamin D3] rotigotine [Neupro] 4 mg TRANSDERMAL DAILY 01/28/19 01/28/19 History Past Med/Surg History Medical History Chronic steroid use DAILY X MANY YRS GERD (gastroesophageal reflux disease) Hypotension Osteoporosis Parkinson disease Psoriatic arthritis SOB (shortness of breath) on exertion LIMITED AMBULATION DUE TO PARKINSON'S Stomach ulcer HX-UNDER CONTROL UTI (urinary tract infection) (Resolved) Surgical History H/O elbow surgery RIGHT-RELEASE OF TENDONS History of back surgery CERVICAL X 2-DISECTOMY/RODS PLACEMENT History of cataract surgery LEFT. 08/27/2018. 40mg PROPOFOL GIVEN History of colonoscopy X MULTIPLE History of esophagogastroduodenoscopy (EGD) History of laparotomy OVARIAN CYSTECTOMY Family History Mother Family history of diabetes mellitus Social History Preferred Language: Kyrgyz Communication Ability: Impaired Tower Erector Required: No Beliefs That Will Affect Care: None Current Living Situation: Spouse Other Information That Helps Us Care for You: No Feels Safe at Home: Yes Smoking Status: Never smoker Second Hand Exposure: Yes (MOTHER SMOKED) ; Hx Alcohol Use: Yes Alcohol type: wine Hx Substance Use: No Review of Systems Review of Systems: Unobtainable due to cognitive status Physical Exam Physical Exam: The patient is minimally responsive, normocephalic and atraumatic, lying in bed and in no acute distress. HEENT--PERRL, EOMI, mucous membranes and oropharynx dry. Neck--supple. No JVD. No bruits. Thyroid normal, trachea midline, no adenopathy. Heart--normal S1 and S2. No murmurs, rubs or gallops. Lungs--coarse breath sounds bilaterally Abdomen--normal bowel sounds and soft. Nontender. Nondistended. Extremities--no cyanosis or clubbing. No edema. Dermatologic--normal skin turgor, face is mildly flushed. Neurologic--cranial nerves II through XII grossly intact. Rheumatologic--limited exam Psychiatric--minimally responsive Results & Data Vital Signs (Past 12 Hours) Vital Signs Temp Pulse Pulse Resp BP BP Pulse Ox 01/28/19 21:18 87 20 102/48 L 97 01/28/19 20:49 91 H 24 95 01/28/19 20:25 30 H 93 01/28/19 20:17 104 H 30 H 153/91 H 88 L 01/28/19 19:39 97.3 F L 117 H 22 89 L Laboratory Results Laboratory Results WBC 7.79 K/uL (4.8-10.8) 01/28/19 20:40 RBC 3.85 M/uL (4.2-5.4) L 01/28/19 20:40 Hgb 12.9 g/dL (12.0-16.0) 01/28/19 20:40 Hct 39.0 % (37-47) 01/28/19 20:40 MCV 101.3 fL (80-100) H 01/28/19 20:40 MCH 33.5 pg (25-34) 01/28/19 20:40 MCHC 33.1 g/dL (32-36) 01/28/19 20:40 RDW Std Deviation 56.7 fL (36.4-46.3) H 01/28/19 20:40 RDW Coeff of Chandra 15.6 % (11.5-14.5) H 01/28/19 20:40 Plt Count 178 K/uL (130-400) 01/28/19 20:40 MPV 9.2 fL (7.4-10.4) 01/28/19 20:40 Immature Gran % (Auto) 0.3 % 01/28/19 20:40 Neut % (Auto) 89.6 % 01/28/19 20:40 Lymph % (Auto) 5.1 % 01/28/19 20:40 [place] % (Auto) 4.7 % 01/28/19 20:40 Eos % (Auto) 0.0 % 01/28/19 20:40 Baso % (Auto) 0.3 % 01/28/19 20:40 Immature Gran # (Auto) 0.02 K/uL (0.00-0.02) 01/28/19 20:40 Neut # (Auto) 6.98 K/uL (1.4-6.5) H 01/28/19 20:40 Lymph # (Auto) 0.40 K/uL (1.2-3.4) L 01/28/19 20:40 [place] # (Auto) 0.37 K/uL (0.11-0.59) 01/28/19 20:40 Eos # (Auto) 0.00 K/uL (0-0.5) 01/28/19 20:40 Baso # (Auto) 0.02 K/uL (0-0.2) 01/28/19 20:40 PT 10.7 Seconds (9.0-12.0) 01/28/19 20:40 INR 1.0 (0.9-1.1) 01/28/19 20:40 APTT 25.6 Seconds (21.0-31.0) 01/28/19 20:40 PTT Ratio 0.9 01/28/19 20:40 Sodium 138 mmol/L (136-145) 01/28/19 20:40 Potassium 4.4 mmol/L (3.5-5.1) 01/28/19 20:40 Chloride 106 mmol/L (98-107) 01/28/19 20:40 Carbon Dioxide 29 mmol/L (21-32) 01/28/19 20:40 Anion Gap 3.0 (3-11) 01/28/19 20:40 BUN 28 mg/dl (7-18) H 01/28/19 20:40 Creatinine 1.28 mg/dl (0.6-1.2) H 01/28/19 20:40 Est Cr Clr Drug Dosing Not Reportable 01/28/19 20:40 Est GFR ( Amer) 47.0 01/28/19 20:40 Est GFR (Non-Af Amer) 40.6 01/28/19 20:40 BUN/Creatinine Ratio 21.9 (10-20) H 01/28/19 20:40 Glucose 148 mg/dl (70-99) H 01/28/19 20:40 Lactate 1.8 mmol/L (0.4-2.0) 01/28/19 20:40 Calcium 9.3 mg/dl (8.5-10.1) 01/28/19 20:40 Total Bilirubin 0.7 mg/dl (0.2-1) 01/28/19 20:40 AST 15 U/L (15-37) 01/28/19 20:40 ALT < 6 U/L (12-78) L 01/28/19 20:40 Alkaline Phosphatase 66 U/L (45-117) 01/28/19 20:40 Total Protein 6.8 gm/dl (6.4-8.2) 01/28/19 20:40 Albumin 3.2 gm/dl (3.4-5.0) L 01/28/19 20:40 Globulin 3.6 gm/dl (2.5-4.0) 01/28/19 20:40 Albumin/Globulin Ratio 0.9 (0.9-2) 01/28/19 20:40 Influenza Type A (PCR) Neg for Influ A (Neg) 01/28/19 20:24 Influenza Type B (PCR) Neg for Influ B (Neg) 01/28/19 20:24 Diagnostic Findings [place], [place] [phone] XRay Report Patient: YOEL MARY Date: 01/28/19 MR#: [id number] Acct ID:[id number]: [facility] Zip[facility] [place] [address] Age: 78Location: ED Sex: F Room/Bed: Att Phy:Diagnosis: AMS - PARKINSONS Yumiko Phy: Mando Cedeño MDService Date: 01/28/19 Fam Phy:Interpreting Phy: Pedro Lazo MD Admit Phy: Ordering Phy: Dickson Damon M.D. cc: ~ SINGLE VIEW CHEST CLINICAL HISTORY: Sepsis. FINDINGS: An AP, portable, upright chest radiograph is compared to chest x-ray and chest CT dated 01/22/2019. The examination is degraded by portable technique and patient rotation. The heart is enlarged noting atherosclerotic calcification of the thoracic aorta. There is mild pulmonary vascular congestion. Scarring/atelectasis is noted at the lung bases and there is mild chronic elevation of right hemidiaphragm. No airspace consolidation or large pleural effusion is identified. No pneumothorax is seen. The skeletal structures are osteopenic. There are healed left-sided rib fractures. Extensive fusion hardware is noted in the cervical spine. Degenerative change is noted in the thoracic spine and shoulders. IMPRESSION: 1. Cardiomegaly with evidence of mild congestive failure. 2. No airspace consolidation or large pleural effusion is identified. ACT 112: Negative or not required by law. Electronically signed by: Pedro Lazo M.D. 01/28/2019 8:18 PM Dictated: 01/28/192016 Transcribed: 01/28/192016 Code Status & VTE Plan Code Status Full code VTE Prophylaxis Plan VTE Prophylaxis will be ordered: Yes PG Care Time/CCT Total # of Minutes Spent Total Time Spent with Patient: Total time spent is greater than 50% in coordination of care (as documented) at patient's floor/unit and/or counseling patient: (1) Sepsis Sepsis acute organ dysfunction status: unspecified Sepsis type: sepsis due to unspecified organism Qualified Code(s): A41.9 - Sepsis, unspecified organism (2) Altered mental status Altered mental status type: unspecified Qualified Code(s): R41.82 - Altered mental status, unspecified (3) URI (upper respiratory infection) URI type: unspecified URI Qualified Code(s): J06.9 - Acute upper respiratory infection, unspecified (4) HTN (hypertension) Hypertension type: unspecified Qualified Code(s): I10 - Essential (primary) hypertension
[2019-01-28] MEDS ORDERED: PATIENT'S HEIGHT AND/OR WEIGHT NEEDED SCH (23:45)
[2019-01-28] MEDS ORDERED: CARBIDOPA LEVODOPA ENTACAPONE PO SCH (23:47)
[2019-01-28] MEDS ORDERED: PIPERACILLIN/TAZOBACTAM 4.5 GM in DEXTROSE 5% 100 ML IV STA (23:47)
[2019-01-28] MEDS ORDERED: ONDANSETRON INJ 2 MG/ML 2 ML VIAL IV PRN (23:47)
[2019-01-29] MEDS: methylPREDNISolone 40 MG in SYRINGE 0 ML IV SCH ×4 (00:16→23:39)
[2019-01-29] MEDS: NSS + 20MEQ KCL 20 MEQ/1,000 ML BAG IV SCH ×2 (00:16→16:14)
[2019-01-29] MEDS: ACETAMINOPHEN 325 MG TAB PO PRN (00:49)
[2019-01-29] MEDS ORDERED: PIPERACILLIN/TAZOBACTAM 3.375 GM in DEXTROSE 5% 100 ML IV SCH (02:00)
[2019-01-29 03:19] LABS: Appearance Urine Cloudy (Clear); Bacteria Urine Automated Negative (Negative); Blood Urine 2+ (Negative); Color Urine Dark Yellow; Epithelial Cell Urine Auto >30 /lpf (0-5); Glucose Urine UA Negative (Negative); Ketones Urine Trace (Negative); Leukocyte Esterase Urine 1+ (Negative); Nitrite Urine Positive (Negative); Protein Urine 2+ (Negative); RBC Urine Automated >30 /hpf (0-4); Specific Gravity Urine 1.025 (1.000-1.030); Urobilinogen Urine Negative (Negative); WBC Urine Automated >30 /hpf (0-5); pH Urine 6.5 (4.5-7.5)
[2019-01-29 03:26] LABS: Bilirubin Urine Negative (Negative); Ictotest Urine Negative (Negative)
[2019-01-29] MEDS: ALBUT/IPRATROP 3MG/0.5MG NEB 3 ML VIAL NEB SCH ×4 (07:11→18:53)
[2019-01-29] MEDS ORDERED: [UNRECOGNIZED DRUG - OTHER] SCH (08:00)
[2019-01-29] MEDS ORDERED: [UNRECOGNIZED DRUG - OTHER] SCH (08:00)
[2019-01-29] MEDS ORDERED: ROTIGOTINE 4 MG TD SCH (09:00)
[2019-01-29] MEDS: NEUPRO 4 MG EXT SCH (09:09)
[2019-01-29] MEDS: guaiFENesin 600 MG TABCR PO SCH ×2 (09:39→20:03)
[2019-01-29] MEDS: PANTOprazole 40 MG TAB PO SCH (09:39)
[2019-01-29] MEDS: FOLIC ACID 1 MG TAB PO SCH (09:39)
[2019-01-29] MEDS: CHOLECALCIFEROL 1,000 UNITS TAB PO SCH ×2 (09:39→20:03)
[2019-01-29] MEDS: STALEVO PO SCH ×4 (09:39→20:04)
[2019-01-29] MEDS: VALACYCLOVIR HCL 500 MG TABLET PO SCH (09:39)
[2019-01-29] MEDS: CALCIUM 600MG + VIT D 400 IU TAB PO SCH (09:39)
[2019-01-29] MEDS: BACLOFEN 10 MG TAB PO SCH ×3 (09:39→20:03)
[2019-01-29] MEDS ORDERED: ERTAPENEM CONSULT ACTIVE PRN (09:41)
[2019-01-29 10:20] LABS: Hematocrit (blood only) 38.3 % (37-47); Hemoglobin 12.5 g/dL (12.0-16.0); Mean Corpuscular Hemoglobin 33.4 pg (25-34); Mean Corpuscular Hgb Conc 32.6 g/dL (32-36); Mean Corpuscular Volume 102.4 fL (80-100); Mean Platelet Volume 9.3 fL (7.4-10.4); Platelet Count 137 K/uL (130-400); RDW Standard Deviation 59.2 fL (36.4-46.3); Red Blood Count 3.74 M/uL (4.2-5.4); White Blood Count 8.38 K/uL (4.8-10.8)
[2019-01-29] MEDS: ERTAPENEM SODIUM 1,000 MG in SODIUM CHLORIDE 0.9% 50 ML IV SCH (10:33)
[2019-01-29 10:39] LABS: Albumin Level 2.7 gm/dl (3.4-5.0); BUN Creatinine Ratio 19.6 (10-20); Calcium 8.2 mg/dl (8.5-10.1); Creatinine Clr Calc Pharmacy 31.7 ml/min; Est GFR (African American) 54.1; Est GFR (Non-African American) 46.7; Potassium 4.1 mmol/L (3.5-5.1)
[2019-01-29 10:44] LABS: Albumin Globulin Ratio 0.8 (0.9-2); Bilirubin,Total 0.8 mg/dl (0.2-1); Globulin 3.6 gm/dl (2.5-4.0); Total Protein 6.3 gm/dl (6.4-8.2); Troponin I 0.022 ng/ml (0-0.045)
[2019-01-29 11:01] LABS: Immature Granulocytes # (auto) 0.02 K/uL (0.00-0.02); Immature Granulocytes % (auto) 0.2 %; Lymphocytes # (auto) 0.53 K/uL (1.2-3.4); Lymphocytes % (auto) 6.3 %; Monocytes # (auto) 0.08 K/uL (0.11-0.59); Neutrophils # (auto) 7.75 K/uL (1.4-6.5); Neutrophils % (auto) 92.5 %
[2019-01-29] MEDS: AZITHROMYCIN 500 MG in DEXTROSE 5% 250 ML IV SCH (12:01)
--- NOTE | 2019-01-29 19:00 | Hospitalist Progress Note ---
Date of Service January 29, 2019 Assessment & Plan (1) Altered mental status: Altered mental state suspect secondary to infection. d mental status, secondary to sepsis, associated with URI and presumptive UTI. Treatment as noted below. Continue Parkinson's meds. The patient is on chronic steroids, and Solu-Medrol will service stress dosing in lieu of hydrocortisone. (2) Sepsis: Sepsis - presumed source URI vs. UTI. SIRS: Tachycardia > 90, RR > 20. Vital signs now resolved (3) URI (upper respiratory infection): Rhonchi on exam - presumed URI. Placed on Zosyn 4.5 g IV every 8 hours, azithromycin 5 mg IV daily. Solu-Medrol 40 mg IV every 8 hours. Duonebs every 4 hours while awake and every 2 hours when necessary. Sputum Gram stain and culture. Nasal cannula oxygen titrated to keep sats > 94% (4) UTI (urinary tract infection): Presumptive urinary tract infection associated with worsening urinary incontinence. UA +ve for LE and nitrites. Switched Zosyn to Ertapenem based on prior sensitivities. (5) GERD (gastroesophageal reflux disease): Switch omeprazole to pantoprazole as per hospital formulary (6) HTN (hypertension): Hold spironolactone. Follow blood pressure closely while rehydrating with IV fluids. (7) Parkinson disease: Continue usual Parkinson's meds as much as able. Discussed possibility of needing NG tube with her if she is unable to take these as her Parkinson's is likely to get worse quickly however he doesn't wish to make a decision on this currently. Subjective Patient seen in AM and unable to give any history. Moans to voice. Seen again with her and patient appears more responsive. He reports she has had nasal congestion for approximately 1 week. However acute deterioration over the course of 1 day with increased confusion and generalized weakness. He reports she is currently not at her baseline and appears very tired at present but was able to wake her up enough to say a few words when seen. Review of Systems Review of Systems: Unobtainable due to cognitive status Physical Exam Constitutional: well developed and + ill appearing (chronically); no acute distress Eyes: + anicteric sclerae; normal pupil size ENMT: external ear and nose normal, oropharynx normal Neck: trachea midline Respiratory: normal respiratory effort, lungs clear to auscultation (clear anteriorly) Cardiovascular: Rate/Rhythm: regular rate and regular rhythm Heart Sounds: normal S1 and normal S2; no murmur Extremities: normal capillary refill and + pedal edema (1+ b/l equal) Gastrointestinal (Abdomen): Inspection/Auscultation: abdomen normal to inspection and normal bowel sounds Percussion/Palpation: + abdomen tender (Generalized, reports normal for her) and abdomen soft; no guarding and abdomen not rigid Musculoskeletal: Extremities: + limited ROM of extremities (severe left upper extemity contracture, more distal contractures on right), + abnormal muscle tone (increased rigidity b/l) and + muscle atrophy Skin: no rashes, warm and dry (no cellulitis noted) Neurologic: + confused; + does not move all extremities (no movement of lower extremities, limited upper extremity movement) and + not awake (woke up later in afternoon) Psychiatric: Orientation: + not alert and + not oriented x 3 Results & Data Vital Signs (Past 12 Hours) Vital Signs Temp Pulse Pulse Resp BP Pulse Ox 01/29/19 18:54 64 18 94 01/29/19 15:49 36.6 C 83 18 107/47 L 91 01/29/19 15:22 71 01/29/19 15:17 56 L 16 85 L 01/29/19 11:31 46 L 16 95 01/29/19 11:00 36.6 C 63 18 149/83 H 92 01/29/19 07:11 46 L 18 97 01/29/19 07:00 37.0 C 48 L 53 L 18 147/70 H 93 PG Care Time/CCT Total # of Minutes Spent Total Time Spent with Patient: Total time spent is greater than 50% in coordination of care (as documented) at patient's floor/unit and/or counseling patient: (1) Altered mental status Altered mental status type: unspecified Qualified Code(s): R41.82 - Altered mental status, unspecified (2) Sepsis Sepsis acute organ dysfunction status: unspecified Sepsis type: sepsis due to unspecified organism Qualified Code(s): A41.9 - Sepsis, unspecified organism (3) URI (upper respiratory infection) URI type: unspecified URI Qualified Code(s): J06.9 - Acute upper respiratory infection, unspecified (4) HTN (hypertension) Hypertension type: unspecified Qualified Code(s): I10 - Essential (primary) hypertension
[2019-01-29] MEDS: LACTATED RINGER'S 1,000 ML IV SCH (19:30)
[2019-01-30] MEDS: ALBUT/IPRATROP 3MG/0.5MG NEB 3 ML VIAL NEB SCH ×3 (07:11→15:18)
[2019-01-30 08:02] LABS: Basophils # (auto) 0.01 K/uL (0-0.2); Basophils % (auto) 0.1 %; Hematocrit (blood only) 37.3 % (37-47); Hemoglobin 12.1 g/dL (12.0-16.0); Immature Granulocytes # (auto) 0.03 K/uL (0.00-0.02); Immature Granulocytes % (auto) 0.3 %; Lymphocytes # (auto) 0.61 K/uL (1.2-3.4); Lymphocytes % (auto) 5.6 %; Mean Corpuscular Hemoglobin 33.1 pg (25-34); Mean Corpuscular Hgb Conc 32.4 g/dL (32-36); Mean Corpuscular Volume 101.9 fL (80-100); Monocytes # (auto) 0.16 K/uL (0.11-0.59); Monocytes % (auto) 1.5 %; Neutrophils # (auto) 9.99 K/uL (1.4-6.5); Neutrophils % (auto) 92.5 %; Platelet Count 126 K/uL (130-400); RDW Coefficient of Variation 16.1 % (11.5-14.5); RDW Standard Deviation 60.1 fL (36.4-46.3); Red Blood Count 3.66 M/uL (4.2-5.4)
[2019-01-30] MEDS: LACTATED RINGER'S 1,000 ML IV SCH (08:17)
[2019-01-30] MEDS: NEUPRO 4 MG EXT SCH (08:18)
[2019-01-30] MEDS: STALEVO PO SCH ×4 (08:18→21:05)
[2019-01-30] MEDS: FOLIC ACID 1 MG TAB PO SCH (08:20)
[2019-01-30] MEDS: CALCIUM 600MG + VIT D 400 IU TAB PO SCH (08:20)
[2019-01-30] MEDS: CHOLECALCIFEROL 1,000 UNITS TAB PO SCH ×2 (08:20→21:07)
[2019-01-30] MEDS: methylPREDNISolone 40 MG in SYRINGE 0 ML IV SCH (08:20)
[2019-01-30] MEDS: PANTOprazole 40 MG TAB PO SCH (08:20)
[2019-01-30] MEDS: VALACYCLOVIR HCL 500 MG TABLET PO SCH (08:21)
[2019-01-30] MEDS: BACLOFEN 10 MG TAB PO SCH ×3 (08:21→21:07)
[2019-01-30] MEDS: guaiFENesin 600 MG TABCR PO SCH (08:21)
[2019-01-30 08:24] LABS: Alanine Aminotransferase < 6 U/L (12-78); Albumin Level 2.5 gm/dl (3.4-5.0); Aspartate Aminotransferase 15 U/L (15-37); BUN Creatinine Ratio 24.9 (10-20); Blood Urea Nitrogen 22 mg/dl (7-18); Calcium 8.2 mg/dl (8.5-10.1); Carbon Dioxide 27 mmol/L (21-32); Chloride 111 mmol/L (98-107); Glucose 155 mg/dl (70-99); Potassium 4.5 mmol/L (3.5-5.1); Sodium 140 mmol/L (136-145)
[2019-01-30 08:27] LABS: Albumin Globulin Ratio 0.7 (0.9-2); Alkaline Phosphatase 54 U/L (45-117); Bilirubin,Total 0.6 mg/dl (0.2-1); Globulin 3.4 gm/dl (2.5-4.0); Total Protein 5.9 gm/dl (6.4-8.2)
[2019-01-30] MEDS: AZITHROMYCIN 500 MG in DEXTROSE 5% 250 ML IV SCH (08:52)
[2019-01-30] MEDS: ERTAPENEM SODIUM 1,000 MG in SODIUM CHLORIDE 0.9% 50 ML IV SCH (11:01)
[2019-01-30] MEDS: ACETAMINOPHEN 325 MG TAB PO PRN (13:12)
--- NOTE | 2019-01-30 14:48 | XRay Report ---
XR chest 1V portable CLINICAL HISTORY: ?PNA COMPARISON STUDY: Chest CT January 22, 2018. Chest radiograph January 28, 2019. FINDINGS: Elevation of the right hemidiaphragm is unchanged. Postoperative findings within the cervic al spine are incidentally noted. There is no evidence for pulmonary edema. No pneumothorax or pleural effusion is noted. There are old left rib fractures. Linear right upper lung opacity likely reflects scarring. Minimal left basilar opacity favors atelectasis. IMPRESSION: 1. No consolidation identified. 2. Mild left basilar opacity favors atelectasis. Right upper lung opacity favors scarring. 3. Stable elevation of the right hemidiaphragm. ACT 112: Negative or not required by law. Electronically signed by: Jens Kruse M.D. 01/30/2019 2:47 PM
--- NOTE | 2019-01-30 17:23 | Hospitalist Progress Note ---
Date of Service January 30, 2019 Assessment & Plan (1) Altered mental status: Altered mental state suspected secondary to infection/dehydration. Given temperature suspect this was more than just dehydration with spironolactone use therefore will continue antibiotics for UTI even if no bacteria found. Treatment as noted below. Continue Parkinson's meds. (2) Sepsis: Sepsis - presumed source URI vs. UTI. SIRS: Tachycardia > 90, RR > 20. Temp 38.4 degrees celsius. Vital signs now resolved (3) URI (upper respiratory infection): Rhonchi on exam - presumed URI. Will repeat CXR given negative urine culture to assess for source of infection. No clear indication for ongoing steroids of duonebs therefore discontinued. No sputum sample given. Nasal cannula oxygen titrated to keep sats > 94% (4) UTI (urinary tract infection): Presumptive urinary tract infection associated with worsening urinary incontinence. Culture negative however taken after antibiotics started. UA +ve for LE and nitrites. Continue Ertapenem based on prior sensitivities. Plan to remove talbert catheter tomorrow morning. (5) Chronic steroid use: Prednisone 5mg PO daily usually. Substituted for Solu-medrol on admission. Will place back on usual prednisone dose and switch to PO hydrocortisone to maintain BP off solu-medrol. (6) GERD (gastroesophageal reflux disease): Switch omeprazole to pantoprazole as per hospital formulary (7) HTN (hypertension): Hold spironolactone. BP improved. (8) Parkinson disease: Continue usual Parkinson's meds. (9) Psoriatic arthritis: Chronic prednisone and weekly methotrexate use. to bring in dose and confirm prior to giving. (10) DVT prophylaxis: Lovenox 40mg SQ QPM (11) Discharge planning issues: PT/OT assessments ordered. Plan to return home if possible, live in handicapped accessible home. Suspect she will be medically stable tomorrow. Subjective Patient much more alert today. Wondering when she can go home. Orientated to time, place and person. Notes generalized abdominal pain but this is normal for her. Ongoing cough but she also notes this is normal for her. Denies any problems swallowing food, although difficulty eating was one of the reasons she was admitted. No nausea or vomiting. Tried calling on cell and home phone with no answer. Review of Systems Review of Systems: All systems reviewed & are unremarkable except as noted in HPI & below Physical Exam Constitutional: well developed and + ill appearing (chronically); no acute distress Eyes: + anicteric sclerae; normal pupil size ENMT: external ear and nose normal, oropharynx normal Neck: trachea midline Respiratory: normal respiratory effort; no respiratory distress Ausc ultation: + rhonchi (b/l); no diminished lung sounds, no crackles and no wheezes Cardiovascular: Rate/Rhythm: regular rate and regular rhythm Heart Sounds: normal S1 and normal S2; no murmur Extremities: normal capillary refill and + pedal edema (1+ b/l equal) Gastrointestinal (Abdomen): Inspection/Auscultation: abdomen normal to inspection and normal bowel sounds Percussion/Palpation: + abdomen tender (Generalized, she confirms normal for her (no worse in any quadrant)) and abdomen soft; no guarding and abdomen not rigid Musculoskeletal: Extremities: + limited ROM of extremities (severe left upper extemity contracture, more distal contractures on right), + abnormal muscle tone (increased rigidity b/l) and + muscle atrophy Skin: no rashes, warm and dry (no cellulitis noted) Neurologic: awake; + does not move all extremities (no movement of lower extremities, limited upper extremity movement) and not confused Psychiatric: A+Ox3, euthymic affect Results & Data Vital Signs (Past 12 Hours) Vital Signs Temp Pulse Pulse Resp BP Pulse Ox 01/30/19 15:20 85 18 96 01/30/19 14:59 36.6 C 86 20 101/63 90 01/30/19 11:28 61 16 96 01/30/19 11:15 36.8 C 67 20 132/69 94 01/30/19 08:00 51 L 01/30/19 07:11 50 L 18 95 01/30/19 06:52 36.4 C L 66 22 172/75 H 94 PG Care Time/CCT Total # of Minutes Spent Total Time Spent with Patient: Total time spent is greater than 50% in coordination of care (as documented) at patient's floor/unit and/or counseling patient: (1) Altered mental status Altered mental status type: unspecified Qualified Code(s): R41.82 - Altered mental status, unspecified (2) Sepsis Sepsis acute organ dysfunction status: unspecified Sepsis type: sepsis due to unspecified organism Qualified Code(s): A41.9 - Sepsis, unspecified organism (3) URI (upper respiratory infection) URI type: unspecified URI Qualified Code(s): J06.9 - Acute upper respiratory infection, unspecified (4) UTI (urinary tract infection) Urinary tract infection type: acute cystitis Hematuria presence: with hematuria Qualified Code(s): N30.01 - Acute cystitis with hematuria (5) HTN (hypertension) Hypertension type: unspecified Qualified Code(s): I10 - Essential (primary) hypertension
[2019-01-30] MEDS: ENOXAPARIN INJ 40 MG/0.4 ML SYR SQ SCH (21:04)
[2019-01-30] MEDS: HYDROCORTISONE 10 MG TAB PO SCH (21:06)
[2019-01-31 06:52] LABS: Basophils # (auto) 0.01 K/uL (0-0.2); Basophils % (auto) 0.1 %; Hematocrit (blood only) 39.5 % (37-47); Immature Granulocytes # (auto) 0.04 K/uL (0.00-0.02); Immature Granulocytes % (auto) 0.3 %; Lymphocytes # (auto) 1.02 K/uL (1.2-3.4); Lymphocytes % (auto) 7.5 %; Mean Corpuscular Hemoglobin 33.5 pg (25-34); Mean Corpuscular Hgb Conc 32.9 g/dL (32-36); Mean Corpuscular Volume 101.8 fL (80-100); Mean Platelet Volume 10.3 fL (7.4-10.4); Monocytes # (auto) 0.44 K/uL (0.11-0.59); Monocytes % (auto) 3.2 %; Neutrophils # (auto) 12.17 K/uL (1.4-6.5); Neutrophils % (auto) 88.9 %; Platelet Count 159 K/uL (130-400); RDW Standard Deviation 58.5 fL (36.4-46.3); Red Blood Count 3.88 M/uL (4.2-5.4); White Blood Count 13.68 K/uL (4.8-10.8)
[2019-01-31 07:21] LABS: BUN Creatinine Ratio 26.3 (10-20); Calcium 8.5 mg/dl (8.5-10.1); Creatinine Clr Calc Pharmacy 43.7 ml/min; Est GFR (Non-African American) 62.1; Magnesium 2.1 mg/dl (1.8-2.4); Phosphorus 1.9 mg/dl (2.5-4.9); Potassium 4.5 mmol/L (3.5-5.1)
[2019-01-31] MEDS: CALCIUM 600MG + VIT D 400 IU TAB PO SCH (08:14)
[2019-01-31] MEDS: FOLIC ACID 1 MG TAB PO SCH (08:15)
[2019-01-31] MEDS: BACLOFEN 10 MG TAB PO SCH ×3 (08:16→20:19)
[2019-01-31] MEDS: STALEVO PO SCH ×4 (08:18→20:17)
[2019-01-31] MEDS: PANTOprazole 40 MG TAB PO SCH (08:18)
[2019-01-31] MEDS: VALACYCLOVIR HCL 500 MG TABLET PO SCH (08:19)
[2019-01-31] MEDS: CHOLECALCIFEROL 1,000 UNITS TAB PO SCH ×2 (08:19→20:21)
[2019-01-31] MEDS: AZITHROMYCIN 500 MG in DEXTROSE 5% 250 ML IV SCH (08:53)
[2019-01-31] MEDS: ERTAPENEM SODIUM 1,000 MG in SODIUM CHLORIDE 0.9% 50 ML IV SCH (11:03)
[2019-01-31] MEDS ORDERED: metHOTREXate sodium 2.5 MG TAB PO ONE (13:00)
[2019-01-31] MEDS: CEFDINIR 300 MG CAP PO SCH ×2 (13:36→20:20)
[2019-01-31] MEDS: POT PHOSPHATE MONOBASIC W/ SOD TAB PO SCH ×3 (13:42→20:19)
--- NOTE | 2019-01-31 16:08 | Hospitalist Progress Note ---
Date of Service January 31, 2019 Assessment & Plan (1) Altered mental status: Altered mental state suspected secondary to infection/dehydration. Negative urine culture noted but taken after antibiotics and patient had fever with change in urine frequency and altered mental state. Treatment as noted below. Continue Parkinson's meds. (2) Sepsis: Sepsis - presumed source URI vs. UTI. SIRS: Tachycardia > 90, RR > 20. Temp 38.4 degrees celsius. Vital signs now resolved (3) URI (upper respiratory infection): Rhonchi on exam - presumed URI, covered initially for bacterial source with azithromycin but now discontinued. CXR - no pneumonia Given elevated BP will d/c hydrocortisone No sputum sample given. Nasal cannula oxygen titrated to keep sats > 94% (4) UTI (urinary tract infection): Presumptive urinary tract infection associated with worsening urinary incontinence. Culture negative however taken after antibiotics started. UA +ve for LE and nitrites. Discussed prior cephalosporin allergy (blood blisters), no anaphylaxis. and patient willing to try cefdinir and observe for reaction while in hospital. Narvaez catheter now removed. Plan on total course of 7 days - no pyelonephritis suspected (5) Dehydration: Resolved with IV fluids and holding spironolactone. (6) GERD (gastroesophageal reflux disease): Switch omeprazole to pantoprazole as per hospital formulary (7) HTN (hypertension): Hold spironolactone. BP stable. Will treat with amlodipine if remains significantly elevated and no orthostatic hypotension. (8) Parkinson disease: Continue usual Parkinson's meds. (9) Psoriatic arthritis: Chronic prednisone and weekly methotrexate use. Methotrexate dose given today (next dose on ) (10) DVT prophylaxis: Lovenox 40mg SQ QPM (11) Discharge planning issues: PT/OT - recommend short stay in inpatient rehab. Medically stable for discharge pending decision regarding placement. Subjective Patient alert and orientated. Some hallucinations/confusion overnight. concerned she is not back to her baseline mobility and unsure if he'll be able to manage at home if she is unable to take of few steps. Review of Systems Review of Systems: All systems reviewed & are unremarkable except as noted in HPI & below Physical Exam Constitutional: well developed and + ill appearing (chronically); no acute distress Eyes: + anicteric sclerae; normal pupil size ENMT: external ear and nose normal, oropharynx normal Neck: trachea midline Respiratory: normal respiratory effort; no respiratory distress Auscultation: lungs clear to auscultation bilaterally; no diminished lung sounds, no crackles, no rales, no rhonchi and no wheezes Cardiovascular: Rate/Rhythm: regular rate and regular rhythm Heart Sounds: normal S1 and normal S2; no murmur Extremities: normal capillary refill and + pedal edema (1+ b/l equal) Gastrointestinal (Abdomen): Inspection/Auscultation: abdomen normal to inspection and normal bowel sounds Percussion/Palpation: + abdomen tender (Generalized (chronic)) and abdomen soft; no guarding and abdomen not rigid Musculoskeletal: Extremities: + limited ROM of extremities (severe left upper extemity contracture, more distal contractures on right), + abnormal muscle tone (increased rigidity b/l) and + muscle atrophy Skin: no rashes, warm and dry (no cellulitis noted) Neurologic: awake; + does not move all extremities (limited upper extremity movement) and not confused Psychiatric: A+Ox3, euthymic affect (fluctuates throughout the day with hallucination noted) Results & Data Vital Signs (Past 12 Hours) Vital Signs Temp Pulse Pulse Resp BP BP Pulse Ox 01/31/19 11:33 36.4 C L 62 18 149/66 H 91 01/31/19 08:00 56 L 01/31/19 07:42 36.5 C 98 H 20 181/71 H 94 01/31/19 04:17 36.5 C 64 20 159/62 H 95 PG Care Time/CCT Total # of Minutes Spent Total Time Spent with Patient: Total time spent is greater than 50% in coordination of care (as documented) at patient's floor/unit and/or counseling patient: (1) Altered mental status Altered mental status type: unspecified Qualified Code(s): R41.82 - Altered mental status, unspecified (2) Sepsis Sepsis acute organ dysfunction status: unspecified Sepsis type: sepsis due to unspecified organism Qualified Code(s): A41.9 - Sepsis, unspecified organism (3) URI (upper respiratory infection) URI type: unspecified URI Qualified Code(s): J06.9 - Acute upper respiratory infection, unspecified (4) UTI (urinary tract infection) Urinary tract infection type: acute cystitis Hematuria presence: with hematuria Qualified Code(s): N30.01 - Acute cystitis with hematuria (5) HTN (hypertension) Hypertension type: unspecified Qualified Code(s): I10 - Essential (primary) hypertension
[2019-01-31] MEDS: NEUPRO 4 MG EXT SCH (17:00)
[2019-01-31] MEDS ORDERED: Nursing to Pharmacy Communication ONE (19:10)
[2019-01-31] MEDS: HYDROCORTISONE 10 MG TAB PO SCH (19:14)
[2019-01-31] MEDS: ENOXAPARIN INJ 40 MG/0.4 ML SYR SQ SCH (20:19)
[2019-02-01] MEDS: FOLIC ACID 1 MG TAB PO SCH (08:26)
[2019-02-01] MEDS: BACLOFEN 10 MG TAB PO SCH ×3 (08:27→20:13)
[2019-02-01] MEDS: STALEVO PO SCH ×4 (08:27→20:14)
[2019-02-01] MEDS: CEFDINIR 300 MG CAP PO SCH ×2 (08:28→20:13)
[2019-02-01] MEDS: PANTOprazole 40 MG TAB PO SCH (08:28)
[2019-02-01] MEDS: VALACYCLOVIR HCL 500 MG TABLET PO SCH (08:28)
[2019-02-01] MEDS: CHOLECALCIFEROL 1,000 UNITS TAB PO SCH ×2 (08:29→20:13)
[2019-02-01] MEDS: CALCIUM 600MG + VIT D 400 IU TAB PO SCH (08:36)
[2019-02-01] MEDS: POT PHOSPHATE MONOBASIC W/ SOD TAB PO SCH ×4 (08:36→20:13)
[2019-02-01] MEDS ORDERED: NEUPRO 4 MG EXT SCH (09:00)
[2019-02-01 09:27] LABS: Folate (Folic Acid) > 24.00 ng/ml (>5.38); Vitamin B12 577 pg/ml (211-911)
[2019-02-01] MEDS: ENOXAPARIN INJ 40 MG/0.4 ML SYR SQ SCH (20:13)
[2019-02-01] MEDS: NEUPRO 4 MG EXT SCH (20:14)
--- NOTE | 2019-02-01 21:58 | Hospitalist Progress Note ---
Date of Service February 01, 2019 Assessment & Plan (1) Altered mental status: Altered mental state suspected secondary to infection/dehydration. Negative urine culture noted but taken after antibiotics and patient had fever with change in urine frequency and altered mental state. Treatment as noted below. Continue Parkinson's meds. (2) Sepsis: Sepsis - presumed source URI vs. UTI. SIRS: Tachycardia > 90, RR > 20. Temp 38.4 degrees celsius. Vital signs now resolved (3) URI (upper respiratory infection): Rhonchi on exam - presumed URI, covered initially for bacterial source with azithromycin but now discontinued. CXR - no pneumonia Given elevated BP will d/c hydrocortisone No sputum sample given. Nasal cannula oxygen titrated to keep sats > 94% (4) UTI (urinary tract infection): Presumptive urinary tract infection associated with worsening urinary incontinence. Culture negative however taken after antibiotics started. UA +ve for LE and nitrites. Discussed prior cephalosporin allergy (blood blisters), no anaphylaxis. and patient willing to try cefdinir and observe for reaction while in hospital. Narvaez catheter now removed. Plan on total course of 7 days - no pyelonephritis suspected (5) Dehydration: Resolved with IV fluids and holding spironolactone. (6) GERD (gastroesophageal reflux disease): Switched omeprazole to pantoprazole as per hospital formulary (7) HTN (hypertension): Hold spironolactone. BP stable. (8) Parkinson disease: Continue usual Parkinson's meds. (9) Psoriatic arthritis: Chronic prednisone and weekly methotrexate use. Methotrexate dose given Sunday (next dose on ) (10) DVT prophylaxis: Lovenox 40mg SQ QPM (11) Discharge planning issues: PT/OT - recommend short stay in inpatient rehab. Medically stable for discharge pending placement. Results & Data Vital Signs (Past 12 Hours) Vital Signs Temp Pulse Resp BP BP Pulse Ox 02/01/19 15:14 37.1 C 59 L 18 114/62 96 02/01/19 11:40 37.0 C 52 L 18 131/76 96 PG Care Time/CCT Total # of Minutes Spent Total Time Spent with Patient: Total time spent is greater than 50% in coordination of care (as documented) at patient's floor/unit and/or counseling patient: (1) Altered mental status Altered mental status type: unspecified Qualified Code(s): R41.82 - Altered mental status, unspecified (2) Sepsis Sepsis acute organ dysfunction status: unspecified Sepsis type: sepsis due to unspecified organism Qualified Code(s): A41.9 - Sepsis, unspecified organism (3) URI (upper respiratory infection) URI type: unspecified URI Qualified Code(s): J06.9 - Acute upper respiratory infection, unspecified (4) UTI (urinary tract infection) Urinary tract infection type: acute cystitis Hematuria presence: with hematuria Qualified Code(s): N30.01 - Acute cystitis with hematuria (5) HTN (hypertension) Hypertension type: unspecified Qualified Code(s): I10 - Essential (primary) hypertension
[2019-02-02] MEDS: CHOLECALCIFEROL 1,000 UNITS TAB PO SCH ×2 (08:54→20:08)
[2019-02-02] MEDS: BACLOFEN 10 MG TAB PO SCH ×3 (08:54→20:10)
[2019-02-02] MEDS: VALACYCLOVIR HCL 500 MG TABLET PO SCH (08:54)
[2019-02-02] MEDS: PANTOprazole 40 MG TAB PO SCH (08:55)
[2019-02-02] MEDS: POT PHOSPHATE MONOBASIC W/ SOD TAB PO SCH ×4 (08:55→20:08)
[2019-02-02] MEDS: CALCIUM 600MG + VIT D 400 IU TAB PO SCH (08:55)
[2019-02-02] MEDS: FOLIC ACID 1 MG TAB PO SCH (08:55)
[2019-02-02] MEDS: CEFDINIR 300 MG CAP PO SCH ×2 (08:55→20:09)
[2019-02-02] MEDS: STALEVO PO SCH ×4 (08:56→20:09)
--- NOTE | 2019-02-02 18:25 | Hospitalist Progress Note ---
Date of Service February 02, 2019 Assessment & Plan (1) Altered mental status: Altered mental state suspected secondary to infection/dehydration. Negative urine culture noted but taken after antibiotics and patient had fever with change in urine frequency and altered mental state. Occasional visual hallucination related to hospital stay ongoing but otherwise back to baseline. Treatment as noted below. Continue Parkinson's meds. (2) Sepsis: Now resolved Sepsis - presumed source UTI. SIRS: Tachycardia > 90, RR > 20. Temp 38.4 degrees celsius. (3) UTI (urinary tract infection): Presumptive urinary tract infection associated with worsening urinary incontinence. Culture negative however taken after antibiotics started. UA +ve for LE and nitrites. Tolerating cefdinir without issues - cephalosporin allergy deleted Narvaez catheter removed 02/01 Plan on total course of 7 days - no pyelonephritis suspected (4) Dehydration: Resolved with IV fluids and holding spironolactone. (5) GERD (gastroesophageal reflux disease): Switched omeprazole to pantoprazole as per hospital formulary (6) HTN (hypertension): Hold spironolactone. BP stable. (7) Parkinson disease: Continue usual Parkinson's meds. (8) Psoriatic arthritis: Chronic prednisone and weekly methotrexate use. Methotrexate dose given Sunday (next dose on ) (9) DVT prophylaxis: Lovenox 40mg SQ QPM (10) Discharge planning issues: PT/OT - recommend short stay in inpatient rehab. Medically stable for discharge pending placement. Results & Data Vital Signs (Past 12 Hours) Vital Signs Temp Pulse Resp BP Pulse Ox 02/02/19 15:00 36.6 C 64 18 131/65 97 02/02/19 07:00 36.4 C L 62 18 135/59 L 96 PG Care Time/CCT Total # of Minutes Spent Total Time Spent with Patient: Total time spent is greater than 50% in coordination of care (as documented) at patient's floor/unit and/or counseling patient: (1) Altered mental status Altered mental status type: unspecified Qualified Code(s): R41.82 - Altered mental status, unspecified (2) Sepsis Sepsis acute organ dysfunction status: unspecified Sepsis type: sepsis due to unspecified organism Qualified Code(s): A41.9 - Sepsis, unspecified organism (3) UTI (urinary tract infection) Urinary tract infection type: acute cystitis Hematuria presence: with he maturia Qualified Code(s): N30.01 - Acute cystitis with hematuria (4) HTN (hypertension) Hypertension type: unspecified Qualified Code(s): I10 - Essential (primary) hypertension
[2019-02-02] MEDS: ENOXAPARIN INJ 40 MG/0.4 ML SYR SQ SCH (20:07)
[2019-02-02] MEDS: NEUPRO 4 MG EXT SCH (20:08)
[2019-02-03 06:54] LABS: BUN Creatinine Ratio 23.4 (10-20); Calcium 8.2 mg/dl (8.5-10.1); Est GFR (African American) 80.6; Est GFR (Non-African American) 69.5; Potassium 3.6 mmol/L (3.5-5.1)
[2019-02-03] MEDS: CHOLECALCIFEROL 1,000 UNITS TAB PO SCH (08:07)
[2019-02-03] MEDS: PANTOprazole 40 MG TAB PO SCH (08:07)
[2019-02-03] MEDS: CALCIUM 600MG + VIT D 400 IU TAB PO SCH (08:07)
[2019-02-03] MEDS: BACLOFEN 10 MG TAB PO SCH ×2 (08:07→13:49)
[2019-02-03] MEDS: CEFDINIR 300 MG CAP PO SCH (08:07)
[2019-02-03] MEDS: POT PHOSPHATE MONOBASIC W/ SOD TAB PO SCH ×3 (08:07→18:30)
[2019-02-03] MEDS: FOLIC ACID 1 MG TAB PO SCH (08:07)
[2019-02-03] MEDS: VALACYCLOVIR HCL 500 MG TABLET PO SCH (08:08)
[2019-02-03] MEDS: STALEVO PO SCH ×3 (08:08→18:29)
[2019-02-03] MEDS ORDERED: ALBUT/IPRATROP 3MG/0.5MG NEB 3 ML VIAL NEB SCH (13:00)
[2019-02-03] MEDS ORDERED: predniSONE 20 MG TAB PO SCH (13:15)
--- NOTE | 2019-02-03 17:25 | Discharge Summary ---
Date of Service February 03, 2019 Admission HPI Per Admitting Provider The patient is a 78-year-old female with a past medical history including Parkinson's disease, psoriatic arthritis, hypertension, hyper cholesterolemia, UTI, cervical spondylosis with myelopathy, acute blood loss anemia, GERD and osteoporosis. Her has brought her to the emergency department due to issues with confusion and decreased ability to follow commands, urinary incontinence 2-3 times daily over the past few days, and productive cough over the past week or so. She has not had any recent travels or sick exposures. While in the ED, she continues to be minimally responsive, acknowledging questio ns, but unable to give answers, and her supplies the HPI and review of systems as noted. Principal Diagnosis Acute metabolic encephalopathy, UTI, Acute bronchitis and Acute hypoxic respiratory failure Discharge Exam Constitutional average body habitus (sitting in chair); no acute distress Eyes + anicteric sclerae ENMT external ear and nose normal, oropharynx normal Neck trachea midline, no thyromegaly Respiratory normal respiratory effort; no labored breathing Auscultation: + rhonchi (mostly upper airway); no crackles and no wheezes Cardiovascular RRR, no murmur, no edema Chest (Breasts) Chest: normal inspection of chest Gastrointestinal (Abdomen) normal bowel sounds, soft, nontender, no hepatosplenomegaly Musculoskeletal Extremities: extremities normal to inspection; no cyanosis and no clubbing Skin no rashes, warm and dry Neurologic moves all extremities and awake; no focal motor deficits Psychiatric A+Ox3, euthymic affect Lymphatic no lymphedema Discharge Data Allergies Allergy/AdvReac Type Severity Reaction Status Date / Time tetracycline Allergy Mild RASH Verified 01/22/19 15:33 lactose Allergy Unknown Gastrointestinal Verified 01/22/19 15:33 Upset lanolin Allergy Unknown BURNING Verified 01/22/19 15:33 shellfish derived Allergy Unknown SOB, Verified 01/22/19 15:33 SWELLING nitrofurantoin AdvReac Intermediate GI Verified 01/22/19 15:33 SYMPTOMS-ON OCC cefuroxime AdvReac Unknown G I UPSET Verified 01/22/19 15:33 cinnamon AdvReac Unknown IN RAW Verified 01/22/19 15:33 FORM CAUSES GI UPSET Quinolones AdvReac Unknown "GI Verified 01/22/19 15:33 symptoms" Sulfa (Sulfonamide AdvReac Unknown "GI Verified 01/22/19 15:33 Antibiotics) SYMPTOMS" Consultations 01/28/19 21:33 ED Decision to Admit Stat 01/28/19 23:47 Consult Case Management - Discharge Planning Routine Ordered Studies CXR x 2 Hospital Course (1) Altered mental status: Acute metabolic encephalopathy Altered mental state suspected secondary to infection/dehydration. Negative urine culture noted but taken after antibiotics and patient had fever with change in urine frequency and altered mental state. Occasional visual hallucination related to hospital stay now resolved, doing well, very appropriate and oriented on day of discharge Treatment as noted below. Continue Parkinson's meds. (2) Sepsis: Now resolved Sepsis - presumed source UTI. SIRS: Tachycardia > 90, RR > 20. Temp 38.4 degrees celsius. (3) UTI (urinary tract infection): Presumptive urinary tract infection associated with worsening urinary incontinence. Culture negative however taken after antibiotics started. UA + for LE and nitrites. Tolerating cefdinir without issues - cephalosporin allergy deleted Narvaez catheter removed 02/01 and voiding on own Plan on total course of 10 days given systemic symptoms--> finish out course of cefdinir at home (4) Dehydration: Resolved with IV fluids and holding spironolactone. (5) Acute bronchitis: With respiratory symptoms of cough ongoing for a week prior to admission as per On day of discharge, still with rhonchi which did then improve with nebulized albuterol and starting prednisone -continue albuterol HFA 2 puffs q4-6 hours after discharge -give prednisone 40mg daily x 3 more days then down to 20mg x 1 day then back to home dose of 5mg daily (6) Acute respiratory failure with hypoxia: Was weaned off O2 prior to discharge. Could not perform 2 step walk test as does not really ambulate much, but was not requiring O2 during transfers from bed to chair (7) GERD (gastroesophageal reflux disease): continue PPI (8) HTN (hypertension): Held spironolactone on admission for sepsis and dehydration -can restart on dc BP stable (9) Parkinson disease: Continue usual Parkinson's meds. (10) Psoriatic arthritis: Chronic prednisone and weekly methotrexate use. Methotrexate dose given Sunday (next dose on ) (11) DVT prophylaxis: Lovenox 40mg SQ QPM (12) Discharge planning issues: PT/OT - recommend short stay in inpatient rehab, however we were in the process of obtaining the auth and adamant about taking her home instead on day of discharge-he did not want to wait for another day or through holiday to take her home. He is able to assist her with all transfers. Medically stable for discharge Total Time Total Time Spent Total Time Spent (In Minutes): 45 min Total Time Includes: Examination of the Patient, Discharge Planning and Medication Reconciliation Discharge Plan Discharge Items Patient Disposition: Home - Home Health Services Reason For Visit: BRONCHITIS,WEAKNESS,ALTERED MENTAL STATUS Discharge Diagnosis: Acute bronchitis, UTI, weakness Condition on Discharge: Fair Goals: You have been hospitalized for an acute medical problem. During your stay at [facility], we have made an effort to correct the problem that brought you to the hospital while keeping you as comfortable as possible. Medications were used to bring your condition under control and your discharge instructions will include directions for any medications you should take after leaving the hospital. Please make sure you see your Primary Care Provider as part of your follow up plan. Activity: Resume your previous activity Bathing: No limitations Non-emergency contact: Primary Care Provider Call non-emergency contact if: you have any medication questions, your symptoms worsen and your temperature is above 101 Follow-up/Referrals: Mando Cedeño MD [Primary Care Provider] - (Please follow up with Dr. Cedeño within 1 week after discharge. ) Diet: Heart Healthy Addtl Attending Provider Instructions: Please finish out the course of antibiotics as prescribed. You should use your home albuterol inhaler 2 puffs every 4-6 hours for the next week. Please take prednisone 40mg daily x 3 days, then 20mg daily x 1 day, then go back to your usual home dose of prednisone 5mg daily. Pending Studies at Discharge: No Stand-Alone Forms: My [facility] Medications and DC Order Prescriptions: New prednisone 20 mg Tablet 40 mg PO DAILY Qty: 7 RF: 0 cefdinir 300 mg Capsule 300 mg PO BID Qty: 6 RF: 0 albuterol sulfate 90 mcg/actuation HFA aerosol inhaler 2 puffs INH Q6H Qty: 18 RF: 0 Continued valacyclovir 500 mg tablet 500 mg PO QAM Qty: 90 RF: 3 methotrexate sodium 2.5 mg tablet 17.5 mg PO WEEKLY Qty: 84 RF: 1 nitrofurantoin macrocrystal [Macrodantin] 50 mg capsule 50 mg PO DAILY Qty: 60 RF: 1 baclofen 10 mg Tablet 10 mg PO TID RF: 0 prednisone 5 mg Tablet 5 mg PO QAM RF: 0 spironolactone 25 mg Tablet 25 mg PO QAM RF: 0 folic acid 1 mg Tablet 1 mg PO QAM RF: 0 omeprazole 20 mg Tablet,Delayed Release (Dr/Ec) 20 mg PO QAM RF: 0 zoledronic [id number] [Reclast] 5 mg/100 mL Piggyback 5 mg IV DIRECTED RF: 0 cyanocobalamin (vitamin B-12) 1,000 mcg/mL Kit 1,000 mcg IM DIRECTED RF: 0 [id number] [Stalevo 150] 37.5-150-200 mg Tablet 1 tab PO 5XD RF: 0 Neupro 4 mg/24 hour patch 24 hour 4 mg transdermal DAILY RF: 0 cholecalciferol (vitamin D3) [Vitamin D3] 1,000 unit Tablet,Chewable 2,000 unit PO BID RF: 0 calcium citrate-vitamin D3 [Citracal + D Petites] 200 mg calcium -250 unit Tablet 1 tab PO QAM RF: 0 Discharge Orders: Discharge Order (Routine); Ordered 02/03/19 Ordered By: Dee Quintero Admission Data Admit Date/Time: 01/28/19 21:52 Attending Provider: Dee Quintero Admit Provider: Abilio Shanks Primary Care Provider: Mando Cedeño Other Providers: [facility], ; Ani Vickers at [place] ; Abilio Shanks ; [facility] Other Interventions: Discharge Summary Assessment (RN) Last Done: 02/03/19 17:49 DC Date/Time DO NOT enter until pt leaves facility: 02/03/19 19:06
== END 2019-02-03 19:06 | disposition home health service (06) | DRG 871 ==
LOC: ED 19:38 → SUATTDRO 21:52 → 2N 21:52

== ENCOUNTER 2019-03-27 18:23 | Inpatient (IN) ==
[2019-03-27] MEDS ORDERED: SODIUM CHLORIDE 0.9% 500 ML IV ONE (18:33)
--- NOTE | 2019-03-27 18:51 | Emergency Department Note ---
Entered by Carlota Keating acting as a scribe for Marc Benitez DO History of Present Illness General Chief complaint: Unresponsive Stated complaint: NON RESPONSIVE - CAN'T/WONT SWALLOW Time Seen by Provider: 03/27/19 18:26 Source: patient History of Present Illness Onset (ago): hour(s) (this morning) Location: head (general) Pain Consistency: + other (worsening) Quality: + other (weakness) Associated symptoms: + denies other symptoms (fall, head injury), + fever/chills and + other (hallucinations, confusion, urinary issues, anxiety); no chest pain, no cough and no headaches The patient is a 78 year old female who presents to the Emergency Room with complaints of worsening weakness beginning this morning. The patient's reports the patient has been taking nitrofurantoin and cefuroxime for a suspected UTI. He notes the patient was improving until today. The patient's reports she had a fever of 100.7 this morning. He notes heavy saliva secretions from her mouth and states she has a hard time swallowing. He reports that the patient is unable to hold her urine long enough to make it to the bathroom. He reports confusion and hallucinations starting today. He denies chest pain, headache, cough, head injury, and fall. The patient's reports the patient has a history of Parkinson's, psoriatic arthritis, and multiple UTIs. He notes the patient is very anxious. The patient's states the patient is scheduled to have a CT of the lower abdomen due to her urinary issues. Home Medications Home Medications Medication Instructions Recorded Confirmed Type cyanocobalamin (vitamin B-12) 1,000 mcg IM DIRECTED 07/29/18 03/27/19 History omeprazole 20 mg PO QAM 07/29/18 03/27/19 History prednisone 5 mg PO QAM 07/29/18 03/27/19 History zoledronic znau-dscffdpn-ifwmg 5 mg IV DIRECTED 07/29/18 03/27/19 History [Reclast] valacyclovir 500 mg tablet 500 mg PO QAM #90 tab 10/08/18 03/27/19 Rx Neupro 4 mg TRANSDERMAL DAILY 01/28/19 03/27/19 History calcium citrate-vitamin D3 1 tab PO QAM 01/28/19 03/27/19 History [Citracal + D Petites] yzswshbqo-rcfoqzyw-gpyeyxryst 1 tab PO QID 01/28/19 03/27/19 History [Stalevo 150] cholecalciferol (vitamin D3) 2,000 unit PO BID 01/28/19 03/27/19 History [Vitamin D3] jessica.stocking,knee,reg,smal #12 ea 02/14/19 03/18/19 Rx methotrexate sodium 2.5 mg tablet 17.5 mg PO WEEKLY #84 tab 03/06/19 03/27/19 Rx baclofen 10 mg tablet 10 mg PO TID 30 Days #90 tab 03/13/19 03/27/19 Rx folic acid 1 mg tablet 1 mg PO QAM #90 tab 03/18/19 03/27/19 Rx spironolactone 25 mg PO .ON HOLD 03/27/19 03/27/19 History Allergies Allergy/AdvReac Type Severity Reaction Status Date / Time tetracycline Allergy Mild RASH Verified 03/27/19 19:00 lactose Allergy Unknown Gastrointestinal Verified 03/27/19 19:00 Upset lanolin Allergy Unknown BURNING Verified 03/27/19 19:00 shellfish derived Allergy Unknown SOB, Verified 03/27/19 19:00 SWELLING nitrofurantoin AdvReac Intermediate GI Verified 03/27/19 19:00 SYMPTOMS-ON OCC cefuroxime AdvReac Unknown G I UPSET Verified 03/27/19 19:00 cinnamon AdvReac Unknown IN RAW Verified 03/27/19 19:00 FORM CAUSES GI UPSET Quinolones AdvReac Unknown "GI Verified 03/27/19 19:00 symptoms" Sulfa (Sulfonamide AdvReac Unknown "GI Verified 03/27/19 19:00 Antibiotics) SYMPTOMS" Past Med/Surg History Medical History Chronic steroid use DAILY X MANY YRS GERD (gastroesophageal reflux disease) (Chronic) Hypotension Kidney stones Osteoporosis Parkinson disease (Chronic) Psoriatic arthritis SOB (shortness of breath) on exertion LIMITED AMBULATION DUE TO PARKINSON'S Stomach ulcer HX-UNDER CONTROL UTI (urinary tract infection) (Resolved) Surgical History H/O elbow surgery RIGHT-RELEASE OF TENDONS History of back surgery CERVICAL X 2-DISECTOMY/RODS PLACEMENT History of cataract surgery LEFT. 08/27/2018. 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 and A total of 10 systems reviewed and were otherwise negative Physical Exam Vital Signs Vital Signs - 24 hr 03/27/19 18:26 03/27/19 18:37 03/27/19 18:55 Temperature 37.4 C Temperature Source Oral Pulse Rate 84 91 H Pulse Rate from SpO2 Sensor 91 H Respiratory Rate 24 26 H Blood Pressure 113/59 L Blood Pressure Mean 77 Blood Pressure Position Sitting Pulse Oximetry 100 100 91 Oxygen Delivery Method Room Air Nasal Cannula Oxygen Flow Rate 3 Sepsis Recent Fever Within 48 Hours No Sepsis New/Unexplained Change in Mental Status No Sepsis Action Taken by Nursing No Action Required Oxygen Flow Rate - Titration Pulse Oximetry Post Tiitration 03/27/19 19:00 03/27/19 19:07 03/27/19 19:15 Temperature Temperature Source Pulse Rate 91 H 83 Pulse Rate from SpO2 Sensor 91 H 83 Respiratory Rate 25 H 15 Blood Pressure Blood Pressure Mean Blood Pressure Position Pulse Oximetry 94 88 L 97 Oxygen Delivery Method Nasal Cannula Room Air Nasal Cannula Oxygen Flow Rate 3 3 Sepsis Recent Fever Within 48 Hours Sepsis New/Unexplained Change in Mental Status Sepsis Action Taken by Nursing Oxygen Flow Rate - Titration 3 Pulse Oximetry Post Tiitration 92 03/27/19 19:19 03/27/19 19:20 03/27/19 19:30 Temperature Temperature Source Pulse Rate 81 81 79 Pulse Rate from SpO2 Sensor 81 81 78 Respiratory Rate 20 15 19 Blood Pressure 117/57 L 119/53 L Blood Pressure Mean 66 79 Blood Pressure Position Pulse Oximetry 100 98 99 Oxygen Delivery Method Nasal Cannula Nasal Cannula Nasal Cannula Oxygen Flow Rate 3 3 3 Sepsis Recent Fever Within 48 Hours Sepsis New/Unexplained Change in Mental Status Sepsis Action Taken by Nursing Oxygen Flow Rate - Titration Pulse Oximetry Post Tiitration 03/27/19 19:31 03/27/19 19:45 03/27/19 20:00 Temperature Temperature Source Pulse Rate 76 83 58 L Pulse Rate from SpO2 Sensor 76 59 L Respiratory Rate 16 20 18 Blood Pressure 118/69 116/49 L Blood Pressure Mean 97 77 Blood Pressure Position Pulse Oximetry 99 98 100 Oxygen Delivery Method Nasal Cannula Nasal Cannula Nasal Cannula Oxygen Flow Rate 3 3 3 Sepsis Recent Fever Within 48 Hours Sepsis New/Unexplained Change in Mental Status Sepsis Action Taken by Nursing Oxygen Flow Rate - Titration Pulse Oximetry Post Tiitration 03/27/19 20:01 03/27/19 20:15 03/27/19 20:49 Temperature Temperature Source Pulse Rate 58 L 58 L 65 Pulse Rate from SpO2 Sensor 59 L 58 L Respiratory Rate 18 15 13 Blood Pressure 90/43 L Blood Pressure Mean 54 Blood Pressure Position Pulse Oximetry 100 98 Oxygen Delivery Method Nasal Cannula Nasal Cannula Oxygen Flow Rate 3 3 Sepsis Recent Fever Within 48 Hours Sepsis New/Unexplained Change in Mental Status Sepsis Action Taken by Nursing Oxygen Flow Rate - Titration Pulse Oximetry Post Tiitration 03/27/19 21:00 03/27/19 21:01 03/27/19 21:15 Temperature Temperature Source Pulse Rate 66 59 L 56 L Pulse Rate from SpO2 Sensor 63 59 L 56 L Respiratory Rate 16 15 16 Blood Pressure 112/55 L Blood Pressure Mean 72 Blood Pressure Position Pulse Oximetry 100 99 100 Oxygen Delivery Method Nasal Cannula Nasal Cannula Nasal Cannula Oxygen Flow Rate 3 3 3 Sepsis Recent Fever Within 48 Hours Sepsis New/Unexplained Change in Mental Status Sepsis Action Taken by Nursing Oxygen Flow Rate - Titration Pulse Oximetry Post Tiitration 03/27/19 21:16 03/27/19 21:30 03/27/19 21:31 Temperature Temperature Source Pulse Rate 55 L 55 L 61 Pulse Rate from SpO2 Sensor 56 L 57 L 61 Respiratory Rate 15 17 14 Blood Pressure 122/68 117/50 L Blood Pressure Mean 78 68 Blood Pressure Position Pulse Oximetry 100 99 98 Oxygen Delivery Method Nasal Cannula Nasal Cannula Nasal Cannula Oxygen Flow Rate 3 3 3 Sepsis Recent Fever Within 48 Hours Sepsis New/Unexplained Change in Mental Status Sepsis Action Taken by Nursing Oxygen Flow Rate - Titration Pulse Oximetry Post Tiitration 03/27/19 21:45 03/27/19 21:46 03/27/19 22:00 Temperature Temperature Source Pulse Rate 58 L 57 L 56 L Pulse Rate from SpO2 Sensor 56 L 57 L 55 L Respiratory Rate 17 18 17 Blood Pressure 103/52 L Blood Pressure Mean 66 Blood Pressure Position Pulse Oximetry 99 98 97 Oxygen Delivery Method Nasal Cannula Nasal Cannula Nasal Cannula Oxygen Flow Rate 3 3 3 Sepsis Recent Fever Within 48 Hours Sepsis New/Unexplained Change in Mental Status Sepsis Action Taken by Nursing Oxygen Flow Rate - Titration Pulse Oximetry Post Tiitration 03/27/19 22:15 03/27/19 22:16 Temperature Temperature Source Pulse Rate 51 L 60 Pulse Rate from SpO2 Sensor 52 L 60 Respiratory Rate 16 16 Blood Pressure 124/56 L Blood Pressure Mean 85 Blood Pressure Position Pulse Oximetry 99 100 Oxygen Delivery Method Nasal Cannula Nasal Cannula Oxygen Flow Rate 3 3 Sepsis Recent Fever Within 48 Hours Sepsis New/Unexplained Change in Mental Status Sepsis Action Taken by Nursing Oxygen Flow Rate - Titration Pulse Oximetry Post Tiitration GENERAL: The patient is awake and looking around the room. She appears to be in mild distress and uncomfortable. EYES: The conjunctivae are clear. The pupils are round and reactive. EARS, NOSE, MOUTH AND THROAT: The nose is without any evidence of any deformity. Mucous membranes are dry. NECK: The neck is nontender and supple. RESPIRATORY: Shallow and tachypneic respirations are noted. There is no specific rales rhonchi or wheezing. Diminished breath sounds were noted at the base. CARDIOVASCULAR: Tachycardic rate with regular rhythm was noted. There is no definite murmur. GASTROINTESTINAL: The abdomen is soft. Abdomen is nontender. MUSCULOSKELETAL/EXTREMITIES: Diffuse muscle rigidity was noted. Consistent with patient's history of Parkinson's. SKIN: Diffuse ecchymosis was noted over the body. There was no specific pedal edema noted. NEUROLOGIC: Patient is awake and answers questions. She follows commands slowly but appropriately. Course Course 1819: Past medical records reviewed. The patient was evaluated in room B02. A complete history and physical exam was performed. 2114: Upon reevaluation, I discussed findings and results with the patient and her . They verbalized agreement of the treatment plan. I spoke with Dr. Shanks of the [facility] Hospitalist Service. The patient will be evaluated for further management and care. Administered Medications Sodium Chloride (Nss 1000ml) 1,000 mls @ 125 mls/hr IV .Q8H KIANA Stop: 04/26/19 23:13 Last Admin: 03/27/19 23:53 Dose: 125 mls/hr Documented by: [id number] Vancomycin HCl 1,250 mg/ (Sodium Chloride) 275 mls @ 125 mls/hr IV TODAY@0000 KIANA Stop: 03/28/19 02:11 Last Admin: 03/27/19 23:55 Dose: 125 mls/hr Documented by: [id number] Ioversol (Optiray 320 125ml) 119 ml IV ONCE PRN PRN Reason: Interaction Checking Stop: 03/31/19 20:21 Last Admin: 03/27/19 20:22 Dose: 119 ml Documented by: [id number] Discontinued Medications Sodium Chloride (Nss) 500 mls @ 999 mls/hr IV .Q31M ONE Stop: 03/27/19 19:03 Last Infusion: 03/27/19 19:57 Dose: 0 mls/hr Documented by: [id number] Admin: 03/27/19 19:23 Dose: 999 mls/hr Documented by: [id number] Piperacillin Sod/Tazobactam Sod (Zosyn) 4.5 gm in 120 mls @ 240 mls/hr IV NOW ONE Stop: 03/27/19 20:16 Last Infusion: 03/27/19 20:27 Dose: 0 mls/hr Documented by: [id number] Admin: 03/27/19 19:57 Dose: 240 mls/hr Documented by: [id number] Medical Decision Making Differential Diagnosis Differential diagnosis:Etiologies such as metabolic, infection, hypoglycemia, electrolyte abnormalities, cardiac sources, intracerebral event, toxicologic, neurologic, as well as others were entertained Medical Records Attestation: I reviewed the patient's medical records. Home Medications Current Medication List: was personally reviewed by me Laboratory Data Attestation: I reviewed the patient's lab results. Result diagrams: 03/27/19 19:13 03/27/19 19:13 Lab Results 03/27/19 03/27/19 03/27/19 Range/Units 19:00 19:13 19:13 WBC 9.65 (4.8-10.8) K/uL RBC 4.12 L (4.2-5.4) M/uL Hgb 14.1 (12.0-16.0) g/dL Hct 42.0 (37-47) % MCV 101.9 H (80-100) fL MCH 34.2 H (25-34) pg MCHC 33.6 (32-36) g/dL RDW Std Deviation 64.4 H (36.4-46.3) fL RDW Coeff of Chandra 17.5 H (11.5-14.5) % Plt Count 171 (130-400) K/uL MPV 10.5 H (7.4-10.4) fL Immature Gran % (Auto) 0.7 % Neut % (Auto) 89.7 % Lymph % (Auto) 4.6 % [place] % (Auto) 4.9 % Eos % (Auto) 0.0 % Baso % (Auto) 0.1 % Immature Gran # (Auto) 0.07 H (0.00-0.02) K/uL Neut # (Auto) 8.66 H (1.4-6.5) K/uL Lymph # (Auto) 0.44 L (1.2-3.4) K/uL [place] # (Auto) 0.47 (0.11-0.59) K/uL Eos # (Auto) 0.00 (0-0.5) K/uL Baso # (Auto) 0.01 (0-0.2) K/uL PT 11.3 (9.0-12.0) Seconds INR 1.1 (0.9-1.1) APTT 26.0 (21.0-31.0) Seconds PTT Ratio 1.0 VBG pH (7.36-7.41) VBG pCO2 (38-50) mmHg VBG pO2 mmHg VBG HCO3 mmol/L VBG O2 Saturation % VBG Base Excess mEq/L Barometric Pressure mm/Hg Sodium (136-145) mmol/L Potassium (3.5-5.1) mmol/L Chloride (98-107) mmol/L Carbon Dioxide (21-32) mmol/L Anion Gap (3-11) BUN (7-18) mg/dl Creatinine (0.6-1.2) mg/dl Est Cr Clr Drug Dosing ml/min Est GFR ( Amer) Est GFR (Non-Af Amer) BUN/Creatinine Ratio (10-20) Glucose (70-99) mg/dl Lactate (0.4-2.0) mmol/L Calcium (8.5-10.1) mg/dl Magnesium (1.8-2.4) mg/dl Total Bilirubin (0.2-1) mg/dl AST (15-37) U/L ALT (12-78) U/L Alkaline Phosphatase (45-117) U/L Troponin I (0-0.045) ng/ml Total Protein (6.4-8.2) gm/dl Albumin (3.4-5.0) gm/dl Globulin (2.5-4.0) gm/dl Albumin/Globulin Ratio (0.9-2) Procalcitonin (0-0.5) ng/ml Urine Color Urine Appearance (Clear) Urine pH (4.5-7.5) Ur Specific [place] (1.000-1.030) Urine Protein (Negative) Urine Glucose (UA) (Negative) Urine Ketones (Negative) Urine Blood (Negative) Urine Nitrite (Negative) Urine Bilirubin (Negative) Urine Urobilinogen (Negative) Ur Leukocyte Esterase (Negative) Urine RBC (0-4) /hpf Urine WBC (0-5) /hpf Ur Epithelial Cells (0-5) /lpf Urine Bacteria (Negative) Influenza Type A (PCR) Neg for Influ A (Neg) Influenza Type B (PCR) Neg for Influ B (Neg) 03/27/19 03/27/19 03/27/19 Range/Units 19:13 19:13 19:15 WBC (4.8-10.8) K/uL RBC (4.2-5.4) M/uL Hgb (12.0-16.0) g/dL Hct (37-47) % MCV (80-100) fL MCH (25-34) pg MCHC (32-36) g/dL RDW Std Deviation (36.4-46.3) fL RDW Coeff of Chandra (11.5-14.5) % Plt Count (130-400) K/uL MPV (7.4-10.4) fL Immature Gran % (Auto) % Neut % (Auto) % Lymph % (Auto) % [place] % (Auto) % Eos % (Auto) % Baso % (Auto) % Immature Gran # (Auto) (0.00-0.02) K/uL Neut # (Auto) (1.4-6.5) K/uL Lymph # (Auto) (1.2-3.4) K/uL [place] # (Auto) (0.11-0.59) K/uL Eos # (Auto) (0-0.5) K/uL Baso # (Auto) (0-0.2) K/uL PT (9.0-12.0) Seconds INR (0.9-1.1) APTT (21.0-31.0) Seconds PTT Ratio VBG pH 7.41 (7.36-7.41) VBG pCO2 48 (38-50) mmHg VBG pO2 23 mmHg VBG HCO3 30 mmol/L VBG O2 Saturation < 60.0 % VBG Base Excess 4.3 mEq/L Barometric Pressure 742.1 mm/Hg Sodium 136 (136-145) mmol/L Potassium 3.7 (3.5-5.1) mmol/L Chloride 103 (98-107) mmol/L Carbon Dioxide 28 (21-32) mmol/L Anion Gap 5.0 (3-11) BUN 23 H (7-18) mg/dl Creatinine 1.27 H (0.6-1.2) mg/dl Est Cr Clr Drug Dosing 28.4 ml/min Est GFR ( Amer) 47.5 Est GFR (Non-Af Amer) 41.0 BUN/Creatinine Ratio 18.2 (10-20) Glucose 151 H (70-99) mg/dl Lactate (0.4-2.0) mmol/L Calcium 11.2 H (8.5-10.1) mg/dl Magnesium 1.8 (1.8-2.4) mg/dl Total Bilirubin 0.8 (0.2-1) mg/dl AST 17 (15-37) U/L ALT 7 L (12-78) U/L Alkaline Phosphatase 76 (45-117) U/L Troponin I 0.038 (0-0.045) ng/ml Total Protein 6.3 L (6.4-8.2) gm/dl Albumin 2.6 L (3.4-5.0) gm/dl Globulin 3.7 (2.5-4.0) gm/dl Albumin/Globulin Ratio 0.7 L (0.9-2) Procalcitonin 0.16 (0-0.5) ng/ml Urine Color Urine Appearance (Clear) Urine pH (4.5-7.5) Ur Specific [place] (1.000-1.030) Urine Protein (Negative) Urine Glucose (UA) (Negative) Urine Ketones (Negative) Urine Blood (Negative) Urine Nitrite (Negative) Urine Bilirubin (Negative) Urine Urobilinogen (Negative) Ur Leukocyte Esterase (Negative) Urine RBC (0-4) /hpf Urine WBC (0-5) /hpf Ur Epithelial Cells (0-5) /lpf Urine Bacteria (Negative) Influenza Type A (PCR) (Neg) Influenza Type B (PCR) (Neg) 03/27/19 03/27/19 Range/Units 19:48 20:15 WBC (4.8-10.8) K/uL RBC (4.2-5.4) M/uL Hgb (12.0-16.0) g/dL Hct (37-47) % MCV (80-100) fL MCH (25-34) pg MCHC (32-36) g/dL RDW Std Deviation (36.4-46.3) fL RDW Coeff of Chandra (11.5-14.5) % Plt Count (130-400) K/uL MPV (7.4-10.4) fL Immature Gran % (Auto) % Neut % (Auto) % Lymph % (Auto) % [place] % (Auto) % Eos % (Auto) % Baso % (Auto) % Immature Gran # (Auto) (0.00-0.02) K/uL Neut # (Auto) (1.4-6.5) K/uL Lymph # (Auto) (1.2-3.4) K/uL [place] # (Auto) (0.11-0.59) K/uL Eos # (Auto) (0-0.5) K/uL Baso # (Auto) (0-0.2) K/uL PT (9.0-12.0) Seconds INR (0.9-1.1) APTT (21.0-31.0) Seconds PTT Ratio VBG pH (7.36-7.41) VBG pCO2 (38-50) mmHg VBG pO2 mmHg VBG HCO3 mmol/L VBG O2 Saturation % VBG Base Excess mEq/L Barometric Pressure mm/Hg Sodium (136-145) mmol/L Potassium (3.5-5.1) mmol/L Chloride (98-107) mmol/L Carbon Dioxide (21-32) mmol/L Anion Gap (3-11) BUN (7-18) mg/dl Creatinine (0.6-1.2) mg/dl Est Cr Clr Drug Dosing ml/min Est GFR ( Amer) Est GFR (Non-Af Amer) BUN/Creatinine Ratio (10-20) Glucose (70-99) mg/dl Lactate 2.1 H* (0.4-2.0) mmol/L Calcium (8.5-10.1) mg/dl Magnesium (1.8-2.4) mg/dl Total Bilirubin (0.2-1) mg/dl AST (15-37) U/L ALT (12-78) U/L Alkaline Phosphatase (45-117) U/L Troponin I (0-0.045) ng/ml Total Protein (6.4-8.2) gm/dl Albumin (3.4-5.0) gm/dl Globulin (2.5-4.0) gm/dl Albumin/Globulin Ratio (0.9-2) Procalcitonin (0-0.5) ng/ml Urine Color [place] Urine Appearance Clear (Clear) Urine pH (4.5-7.5) Ur Specific [place] 1.019 (1.000-1.030) Urine Protein (Negative) Urine Glucose (UA) (Negative) Urine Ketones (Negative) Urine Blood (Negative) Urine Nitrite (Negative) Urine Bilirubin (Negative) Urine Urobilinogen (Negative) Ur Leukocyte Esterase (Negative) Urine RBC >30 H (0-4) /hpf Urine WBC >30 H (0-5) /hpf Ur Epithelial Cells 0-5 (0-5) /lpf Urine Bacteria 1+ H (Negative) Influenza Type A (PCR) (Neg) Influenza Type B (PCR) (Neg) Imaging Data Radiologist's Impression: Radiology results as stated below per my review and the radiologist's interpretation: ABDOMEN AND PELVIS CT WITHOUT CONTRAST CT DOSE: HISTORY: Fever. TECHNIQUE: Multiaxial CT images of the abdomen and pelvis were performed without contrast. A dose lowering technique was utilized adhering to the principles of ALARA. COMPARISON STUDY: Abdomen and pelvis CT 04/19/2010. FINDINGS: Patchy bibasilar airspace opacities, right greater than left. This likely represents a pneumonia. No pneumoperitoneum. No pneumatosis. Old, healed right pubic ring fracture. Old, healed bilateral rib fractures. Mild anterior wedging at T9 which is also likely old. Trace pericardial effusion. Motion artifact and streak artifact within the abdomen. This results in suboptimal evaluation. However, the unenhanced liver, gallbladder, pancreas, spleen, and adrenal glands unremarkable. There is fatty replacement of the pancreatic head which is considered to be a normal variant. No retroperitoneal lymphadenopathy. There are 2 stones within the left renal pelvis with the largest measuring 12 mm. No left-sided hydronephrosis to suggest obstruction. There are a few additional punctate bilateral renal calculi. There are few punctate stones within the bladder. No ureteral calculi. No hydronephrosis. Small amount of gas within the endometrial cavity. The ovaries are within normal limits. Small to moderate amount of well-formed stool within the rectum. Mild pelvic floor collapse. Colonic diverticulosis. No evidence for diverticulitis. Suboptimal evaluation for bowel pathology due to the lack of intravenous and oral contrast. However, there is no definite bowel wall thickening or obstruction. Normal appendix. IMPRESSION: 1. Patchy bibasilar airspace opacities consistent with a pneumonia. Recommend follow-up to ensure resolution. 2. No bowel wall thickening or obstruction. 3. Normal appendix. 4. Bilateral nephrolithiasis. No ureteral stones. No hydronephrosis. 5. There are few small bladder calculi. 6. Additional findings as described above. ACT 112: Negative or not required by law. Electronically signed by: Marlo Nelson M.D. 03/27/2019 9:05 PM SINGLE VIEW CHEST CLINICAL HISTORY: Sepsis. FINDINGS: An AP, portable, upright chest radiograph is compared to study dated 01/30/2019 and correlated with chest CT dated 01/22/2018. The examination is degraded by portable technique and patient rotation. The heart is mildly enlarged noting atherosclerotic calcification of the thoracic aorta. The pulmonary vasculature is noncongested. There is chronic elevation of the right hemidiaphragm with associated atelectasis. Patchy airspace consolidation is identified in the right midlung. No large pleural effusion is identified. No pneumothorax is seen. The skeletal structures are osteopenic. There are healed left-sided rib fractures. Advanced degenerative change is noted in the shoulders and thoracic spine. Fusion hardware is noted in the lower cervical spine. IMPRESSION: 1. Patchy airspace consolidation in the right midlung is typical in appearance for pneumonia/aspiration pneumonitis. Clinical correlation will be required and radiographic follow-up to resolution is recommended. 2. Cardiomegaly without radiographic evidence of congestive failure. ACT 112: Negative or not required by law. Electronically signed by: Pedro Lazo M.D. 03/27/2019 7:[address] CT DOSE: 1296.23 mGy.cm HISTORY: Altered mental status. TECHNIQUE: Multiaxial CT images of the head were performed without the use of intravenous contrast. Automated exposure control was utilized for this study. A dose lowering technique was utilized adhering to the principles of ALARA. Comparison: Head CT 05/22/2014. Findings: Trace chronic left mastoid effusion. The right mastoid air cells are clear. The paranasal sinuses are clear. The calvarium and skull base are intact. There is no mass, hematoma, midline shift, acute infarct. White matter hypodensity is nonspecific but suggestive of microvascular ischemic change. The ventricles and sulci demonstrate mild age-related involutional changes. Mild motion artifact. Impression: No significant change compared to the prior study. No acute intracranial abnormality. ACT 112: Negative or not required by law. Electronically signed by: Marlo Nelson M.D. 03/27/2019 8:57 PM ECG Data Attestation: I personally reviewed and interpreted this ECG as follows: Indication: + weakness Rate (beats per minute): 108 Rhythm: + sinus tachycardia ECG Findings: + PVCs and + Other (poor baseline) Comparison ECG Date: from (01/28/2019) Change: no significant change Blood Pressure Blood Pressure Findings: Low blood pressure Blood Pressure Disposition: further management by hospitalist PATRICIA Adams The patient is a 78-year-old female who presented to the emergency department for an evaluation of altered mental status. The patient had an episode of emesis. She has not been able to take her medications by mouth according to her significant other. The patient does have a history of Parkinson's. The patient has had symptoms which have been ongoing for the last few days but appeared to of worsened prior to arrival. The patient was treated with IV fluids and IV antibiotics for presumed pneumonia noted on chest x-ray. I discussed the patient's laboratory and radiographic studies with the family member. He she also appears to have signs of urinary tract infection noted on urinalysis. I discussed her case with the on-call [facility] hospitalist group. They have agreed to evaluate the patient in the emergency department for further management and disposition. Impression & Plan Weakness, Pneumonia, Urinary tract infection Discharge Plan Visit Data *Final* Discharge Date/Time: 03/27/19 22:39 Chief Complaint: Unresponsive Stated Complaint: NON RESPONSIVE - CAN'T/WONT SWALLOW ED Provider: Marc Benitez Discharge Problem: Weakness, Pneumonia, Urinary tract infection Patient Disposition: Admitted As Inpatient Discharge Instructions Interventions: ED Discharge Assessment Last Done: 03/27/19 22:39 Discharge Problem: Pneumonia Qualifiers: Pneumonia type: due to unspecified organism Laterality: unspecified laterality Lung location: unspecified part of lung Qualified Code(s): J18.9 - Pneumonia, unspecified organism Urinary tract infection Qualifiers: Urinary tract infection type: site unspecified Hematuria presence: without hematuria Qualified Code(s): N39.0 - Urinary tract infection, site not specified The scribe's documentation has been prepared under my direction and personally reviewed by me in its entirety. I confirm that the note above accurately reflects all work, treatment, procedures, and medical decision making performed by me.
--- NOTE | 2019-03-27 19:04 | XRay Report ---
SINGLE VIEW CHEST CLINICAL HISTORY: Sepsis. FINDINGS: An AP, portable, upright chest radiograph is compared to study dated 01/30/2019 and correla mel with chest CT dated 01/22/2018. The examination is degraded by portable technique and patient rot ation. The heart is mildly enlarged noting atherosclerotic calcification of the thoracic aorta. The pulmonary vasculature is noncongested. There is chronic elevation of the right hemidiaphragm with ass ociated atelectasis. Patchy airspace consolidation is identified in the right midlung. No large pleur al effusion is identified. No pneumothorax is seen. The skeletal structures are osteopenic. There are healed left-sided rib fractures. Advanced degenerative change is noted in the shoulders and thoracic spine. Fusion hardware is noted in the lower cervical spine. IMPRESSION: 1. Patchy airspace consolidation in the right midlung is typical in appearance for pneumonia/aspirati on pneumonitis. Clinical correlation will be required and radiographic follow-up to resolution is rec ommended. 2. Cardiomegaly without radiographic evidence of congestive failure. ACT 112: Negative or not required by law. Electronically signed by: Pedro Lazo M.D. 03/27/2019 7:02 PM
[2019-03-27 19:35] LABS: Base Excess VBG 4.3 mEq/L; HCO3 VBG 30 mmol/L; PCO2 VBG 48 mmHg (38-50); PO2 VBG 23 mmHg; pH VBG 7.41 (7.36-7.41)
[2019-03-27 19:36] LABS: Oxygen Saturation VBG < 60.0 %
[2019-03-27 19:42] LABS: Basophils # (auto) 0.01 K/uL (0-0.2); Basophils % (auto) 0.1 %; Hemoglobin 14.1 g/dL (12.0-16.0); Immature Granulocytes # (auto) 0.07 K/uL (0.00-0.02); Immature Granulocytes % (auto) 0.7 %; Lymphocytes # (auto) 0.44 K/uL (1.2-3.4); Lymphocytes % (auto) 4.6 %; Mean Corpuscular Hemoglobin 34.2 pg (25-34); Mean Corpuscular Hgb Conc 33.6 g/dL (32-36); Mean Corpuscular Volume 101.9 fL (80-100); Mean Platelet Volume 10.5 fL (7.4-10.4); Monocytes # (auto) 0.47 K/uL (0.11-0.59); Monocytes % (auto) 4.9 %; Neutrophils # (auto) 8.66 K/uL (1.4-6.5); Neutrophils % (auto) 89.7 %; Platelet Count 171 K/uL (130-400); RDW Coefficient of Variation 17.5 % (11.5-14.5); RDW Standard Deviation 64.4 fL (36.4-46.3); Red Blood Count 4.12 M/uL (4.2-5.4); White Blood Count 9.65 K/uL (4.8-10.8)
[2019-03-27] MEDS ORDERED: PIPERACILL/TAZOBAC CONSULT ACTIVE PRN ×2 (19:47→23:14)
[2019-03-27] MEDS ORDERED: PIPERACILLIN/TAZOBACTAM 4.5 GM/120 ML BAG IV ONE (19:47)
[2019-03-27 19:49] LABS: Influenza A virus by PCR Neg for Influ A (Neg); Influenza B virus by PCR Neg for Influ B (Neg)
[2019-03-27 19:51] LABS: INR 1.1 (0.9-1.1); Prothrombin Time 11.3 Seconds (9.0-12.0)
[2019-03-27 20:03] LABS: Albumin Level 2.6 gm/dl (3.4-5.0); BUN Creatinine Ratio 18.2 (10-20); Calcium 11.2 mg/dl (8.5-10.1); Creatinine Clr Calc Pharmacy 28.4 ml/min; Est GFR (African American) 47.5; Magnesium 1.8 mg/dl (1.8-2.4); Potassium 3.7 mmol/L (3.5-5.1)
[2019-03-27 20:08] LABS: Albumin Globulin Ratio 0.7 (0.9-2); Bilirubin,Total 0.8 mg/dl (0.2-1); Globulin 3.7 gm/dl (2.5-4.0); Total Protein 6.3 gm/dl (6.4-8.2); Troponin I 0.038 ng/ml (0-0.045)
[2019-03-27 20:10] LABS: Appearance Urine Clear (Clear); Color Urine Orange; Ictotest Urine Negative (Negative); Specific Gravity Urine 1.019 (1.000-1.030); Sulfosalicylic Acid Urine Positive (Negative)
[2019-03-27 20:16] LABS: Bacteria Urine 1+ (Negative); Epithelial Cell Urine 0-5 /lpf (0-5); RBC Urine >30 /hpf (0-4); WBC Urine >30 /hpf (0-5)
[2019-03-27] MEDS ORDERED: OPTIRAY 320 125ml IV PRN (20:22)
--- NOTE | 2019-03-27 20:58 | CT Scan Report ---
HEAD CT NONCONTRAST CT DOSE: 1296.23 mGy.cm HISTORY: Altered mental status. TECHNIQUE: Multiaxial CT images of the head were performed without the use of intravenous contrast. A utomated exposure control was utilized for this study. A dose lowering technique was utilized adheri ng to the principles of ALARA. Comparison: Head CT 05/22/2014. Findings: Trace chronic left mastoid effusion. The right mastoid air cells are clear. The paranasal s inuses are clear. The calvarium and skull base are intact. There is no mass, hematoma, midline shift, acute infarct. White matter hypodensity is nonspecific but suggestive of microvascular ischemic hair ge. The ventricles and sulci demonstrate mild age-related involutional changes. Mild motion artifact. Impression: No significant change compared to the prior study. No acute intracranial abnormality. ACT 112: Negative or not required by law. Electronically signed by: Marlo Nelson M.D. 03/27/2019 8:57 PM
--- NOTE | 2019-03-27 21:07 | CT Scan Report ---
ABDOMEN AND PELVIS CT WITHOUT CONTRAST CT DOSE: HISTORY: Fever. TECHNIQUE: Multiaxial CT images of the abdomen and pelvis were performed without contrast. A dose lo wering technique was utilized adhering to the principles of ALARA. COMPARISON STUDY: Abdomen and pelvis CT 04/19/2010. FINDINGS: Patchy bibasilar airspace opacities, right greater than left. This likely represents a pneu monia. No pneumoperitoneum. No pneumatosis. Old, healed right pubic ring fracture. Old, healed bilate ral rib fractures. Mild anterior wedging at T9 which is also likely old. Trace pericardial effusion. Motion artifact and streak artifact within the abdomen. This results in suboptimal evaluation. Howeve r, the unenhanced liver, gallbladder, pancreas, spleen, and adrenal glands unremarkable. There is fat ty replacement of the pancreatic head which is considered to be a normal variant. No retroperitoneal lymphadenopathy. There are 2 stones within the left renal pelvis with the largest measuring 12 mm. No left-sided hydronephrosis to suggest obstruction. There are a few additional punctate bilateral seng l calculi. There are few punctate stones within the bladder. No ureteral calculi. No hydronephrosis. Small amount of gas within the endometrial cavity. The ovaries are within normal limits. Small to mod erate amount of well-formed stool within the rectum. Mild pelvic floor collapse. Colonic diverticulos is. No evidence for diverticulitis. Suboptimal evaluation for bowel pathology due to the lack of intr avenous and oral contrast. However, there is no definite bowel wall thickening or obstruction. Normal appendix. IMPRESSION: 1. Patchy bibasilar airspace opacities consistent with a pneumonia. Recommend follow-up to ensure res olution. 2. No bowel wall thickening or obstruction. 3. Normal appendix. 4. Bilateral nephrolithiasis. No ureteral stones. No hydronephrosis. 5. There are few small bladder calculi. 6. Additional findings as described above. ACT 112: Negative or not required by law. Electronically signed by: Marlo Nelson M.D. 03/27/2019 9:05 PM
--- NOTE | 2019-03-27 22:21 | History & Physical Report ---
Date of Service March 27, 2019 Assessment & Plan (1) Acute respiratory failure with hypoxemia: Acute hypoxic respiratory failure 2/2 acute pneumonia SPO2 as needed Received empiric Zosyn in ED Patient allergic to tetracyclines Concern for aspiration pneumonia. Continue Zosyn Cannot use doxycycline given patient's allergies. Vancomycin, MRSA swab pending discontinue if negative No history of COPD/asthma Flu negative Received NSS 500 cc bolus NSS 100 cc/h IVF M Lactate elevated to 2.1, repeat pending SOLIS Baseline creatinine approximately 0.8 Creatinine acutely elevated to 1.27, suspect SOLIS versus prerenal azotemia in the setting of acute pneumonia Received NSS 500 cc in ED Continue IVFM nss 100 cc/h BMP daily Avoid nephrotoxins Parkinson's Continue Stalevo 150 mg 4 times daily once patient able to take medications Hold baclofen 10 mg twice daily due to cognitive status Unclear baseline, patient may have an element of Parkinson's dementia Hypertension Hold spironolactone in the setting of pneumonia with volume depletion GERD Tonics 20 mg p.o. every morning once able to take p.o. meds Psoriatic arthritis Is on 5 mg daily once able to take p.o. Hold methotrexate 2.5 mg setting of acute illness History of HSV Continue valacyclovir 500 mg daily once able to tolerate p.o. Disposition: Med/telemetry for closer observation while severely ill DVT prophylaxis: Heparin 5000 units every 12 CODE STATUS: DNR/DNI (2) Lower extremity weakness: (3) Incontinence: (4) Sepsis: (5) Acute bronchitis: History of Present Illness Chief Complaint: Lethargy Primary Care Provider: Mando Cedeño MD Today is a 78-year-old female with past medical history of Parkinson's disease, psoriatic arthritis on methotrexate therapy, hypertension, hypercholesterolemia, recurrent UTIs, cervical spondylosis with myelopathy status post decompression surgery and rehab, GERD, and osteoporosis. She presents to the emergency department at 's concern for increased weakness and lethargy for 1 day. History is completed at the bedside with the assistance of her , patient is lethargic, and arouses transiently to sternal rub before falling back asleep and does not give meaningful answers to questions. Patient's reports she was with a gradually decreasing appetite over the previous few days. He noticed her becoming weaker with a decrease in energy and more difficulty ambulating the previous Sunday through Sunday. She had a couple of episodes on standing of blank staring for about 30 seconds with her legs giving out underneath her. He is not sure she was very weak and syncopal or was having blank absence spells. She had no shaking, no incontinence, no tongue biting during these episodes. He reports that she is normally alert, although not very chatty. She is normally oriented to name and can answer questions, but has had increasing disorientation to date/month/year over the previous few months. On day of admission he said that she was very weak, and unable to sustain her own body weight when trying to transfer with assistance from her for a wheelchair to the toilet. When he checked her temperature by axillary thermometer she was slightly over 100.0 F. Her was concerned about a UTI which has appeared similar for her in the past. She was seen by her primary care provider about 2 weeks ago for initial weakness and was placed on 10 days of ciprofloxacin for UTI which she completed last night. denies recent cough, shortness of breath, respiratory symptoms, diarrhea, constipation, abdominal pain or other new symptoms in his in the previous few days. reports that she has baseline is normally able answer questions as above, although she has slowly progressive Parkinson's disease controlled on Stalevo 4 times daily. She has more hypertonicity than tremors, she has been followed on outpatient who are balancing the Stalevo against baclofen 10 mg 3 times daily. Medical history: Reviewed in EMR Surgical history: Reviewed in EMR. Significant for neck surgery and stenosis decompression about 5 years ago. Allergies: Tetracycline, cefuroxime: GI symptoms). Additional allergies reviewed in EMR with the patient's , only rash/swelling allergies are to tetracycline and shellfish. Social history: No current or former tobacco use. No alcohol use. No recreational drug use. She lives with her at home who assists her with ambulation. She was in an LTAC after neck surgery as above for rehab. CODE STATUS: DNR/DNI, discussed with patient's . Allergies Allergy/AdvReac Type Severity Reaction Status Date / Time tetracycline Allergy Mild RASH Verified 03/27/19 19:00 lactose Allergy Unknown Gastrointestinal Verified 03/27/19 19:00 Upset lanolin Allergy Unknown BURNING Verified 03/27/19 19:00 shellfish derived Allergy Unknown SOB, Verified 03/27/19 19:00 SWELLING nitrofurantoin AdvReac Intermediate GI Verified 03/27/19 19:00 SYMPTOMS-ON OCC cefuroxime AdvReac Unknown G I UPSET Verified 03/27/19 19:00 cinnamon AdvReac Unknown IN RAW Verified 03/27/19 19:00 FORM CAUSES GI UPSET Quinolones AdvReac Unknown "GI Verified 03/27/19 19:00 symptoms" Sulfa (Sulfonamide AdvReac Unknown "GI Verified 03/27/19 19:00 Antibiotics) SYMPTOMS" Home Medications Home Medications Medication Instructions Recorded Confirmed Type cyanocobalamin (vitamin B-12) 1,000 mcg IM DIRECTED 07/29/18 03/27/19 History omeprazole 20 mg PO QAM 07/29/18 03/27/19 History prednisone 5 mg PO QAM 07/29/18 03/27/19 History zoledronic qdhk-zggzunai-pdrhk 5 mg IV DIRECTED 07/29/18 03/27/19 History [Reclast] valacyclovir 500 mg tablet 500 mg PO QAM #90 tab 10/08/18 03/27/19 Rx Neupro 4 mg TRANSDERMAL DAILY 01/28/19 03/27/19 History calcium citrate-vitamin D3 1 tab PO QAM 01/28/19 03/27/19 History [Citracal + D Petites] luwzztrwk-zprkvcki-wrdlrpaixm 1 tab PO QID 01/28/19 03/27/19 History [Stalevo 150] cholecalciferol (vitamin D3) 2,000 unit PO BID 01/28/19 03/27/19 History [Vitamin D3] jessica.stocking,knee,reg,smal #12 ea 02/14/19 03/18/19 Rx methotrexate sodium 2.5 mg tablet 17.5 mg PO WEEKLY #84 tab 03/06/19 03/27/19 Rx baclofen 10 mg tablet 10 mg PO TID 30 Days #90 tab 03/13/19 03/27/19 Rx folic acid 1 mg tablet 1 mg PO QAM #90 tab 03/18/19 03/27/19 Rx spironolactone 25 mg PO .ON HOLD 03/27/19 03/27/19 History Past Med/Surg History Medical History Chronic steroid use DAILY X MANY YRS GERD (gastroesophageal reflux disease) (Chronic) Hypotension Kidney stones Osteoporosis Parkinson disease (Chronic) Psoriatic arthritis SOB (shortness of breath) on exertion LIMITED AMBULATION DUE TO PARKINSON'S Stomach ulcer HX-UNDER CONTROL UTI (urinary tract infection) (Resolved) Surgical History H/O elbow surgery RIGHT-RELEASE OF TENDONS History of back surgery CERVICAL X 2-DISECTOMY/RODS PLACEMENT History of cataract surgery LEFT. 08/27/2018. 40mg PROPOFOL GIVEN History of colonoscopy X MULTIPLE History of esophagogastroduodenoscopy (EGD) History of laparotomy OVARIAN CYSTECTOMY Family History Mother Family history of diabetes mellitus Son Diabetes Social History Preferred Language: Belarusian Communication Ability: Impaired Corporate Travel Coordinator Required: No Beliefs That Will Affect Care: None marital status: Current Living Situation: Spouse Current Living Situation Comment: Lives at home with and caregivers Other Information That Helps Us Care for You: No Feels Safe at Home: Yes Safety Concerns: Feels Safe At This Time Smoking Status: Never smoker Second Hand Exposure: Yes (MOTHER SMOKED) ; Hx Alcohol Use: No Hx Substance Use: No Review of Systems Review of Systems: Unobtainable due to cognitive status Physical Exam Physical Exam: General: Lethargic, arouses transiently to sternal rub. HEENT: Atraumatic, normocephalic. Pulm: Bibasilar crackles. Decreased air movement globally. Cardiac: RRR, -mrg. Radial pulses intact and symmetrical. Abdominal: Nontender, nondistended, soft. BS present. Unable to perform sensory or motor testing due to cognitive status. Patient with increased global tone, elbows and flexed position. Increased tone of the lower legs, near baseline per patient's . Results & Data Vital Signs (Past 12 Hours) Vital Signs Temp Pulse Resp BP Pulse Ox 03/27/19 21:31 61 14 117/50 L 98 03/27/19 21:30 55 L 17 99 03/27/19 21:16 55 L 15 122/68 100 03/27/19 21:15 56 L 16 100 03/27/19 21:01 59 L 15 112/55 L 99 03/27/19 21:00 66 16 100 03/27/19 20:49 65 13 03/27/19 20:15 58 L 15 90/43 L 98 03/27/19 20:01 58 L 18 100 03/27/19 20:00 58 L 18 116/49 L 100 03/27/19 19:45 83 20 118/69 98 03/27/19 19:31 76 16 99 03/27/19 19:30 79 19 119/53 L 99 03/27/19 19:20 81 15 98 03/27/19 19:19 81 20 117/57 L 100 03/27/19 19:15 83 15 97 03/27/19 19:07 88 L 03/27/19 19:00 91 H 25 H 94 03/27/19 18:55 91 H 26 H 91 03/27/19 18:37 100 03/27/19 18:26 37.4 C 84 24 113/59 L 100 Supervising Physician Co-Signing Physician Notes Attending addendum: I have physically seen this patient, have supervised the medical residents activities, and agree with the H&P unless as otherwise noted. Assessment and Plan: Acute respiratory failure with hypoxia/right upper lobe pneumonia- Admit to monitored bed. Zosyn 4.5 g IV every 8 hours. Vancomycin IV per pharmacokinetic monitoring Duonebs every 4 hours while awake and every 2 hours when necessary. Methylprednisolone 40 mg IV every 8 hours. Guaifenesin extended release 600 mg p.o. twice daily NSS@100 mils per hour. Follow sputum cultures and blood cultures and sensitivity. Remainder of orders and notations as noted. Resident Activity Tracking Resident Involvement: Resident Care Provided Care Provided: Adult [facility]
[2019-03-27] MEDS ORDERED: VANCOMYCIN HCL 1,000 MG in SODIUM CHLORIDE 0.9% 500 ML IV ONE (23:14)
[2019-03-27] MEDS ORDERED: VANCOMYCIN CONSULT ACTIVE PRN (23:14)
[2019-03-27] MEDS: SODIUM CHLORIDE 0.9% 1000ML 1,000 ML IV SCH (23:53)
[2019-03-28] MEDS ORDERED: VANCOMYCIN HCL 1,250 MG in SODIUM CHLORIDE 0.9% 250 ML IV SCH
[2019-03-28] MEDS: PIPERACILLIN/TAZOBACTAM 3.375 GM in DEXTROSE 5% 100 ML IV SCH ×3 (02:02→17:40)
[2019-03-28] MEDS ORDERED: ACETAMINOPHEN 500 MG TAB PO PRN (04:25)
[2019-03-28] MEDS ORDERED: ACETAMINOPHEN 1,000 MG/100 ML VIAL IV PRN (04:39)
[2019-03-28 05:43] LABS: Basophils # (auto) 0.01 K/uL (0-0.2); Basophils % (auto) 0.1 %; Eosinophils # (auto) 0.02 K/uL (0-0.5); Eosinophils % (auto) 0.3 %; Hematocrit (blood only) 34.1 % (37-47); Hemoglobin 11.2 g/dL (12.0-16.0); Immature Granulocytes # (auto) 0.03 K/uL (0.00-0.02); Immature Granulocytes % (auto) 0.4 %; Lymphocytes % (auto) 8.1 %; Mean Corpuscular Hemoglobin 33.3 pg (25-34); Mean Corpuscular Hgb Conc 32.8 g/dL (32-36); Mean Corpuscular Volume 101.5 fL (80-100); Mean Platelet Volume 10.3 fL (7.4-10.4); Monocytes # (auto) 0.32 K/uL (0.11-0.59); Monocytes % (auto) 4.3 %; Neutrophils % (auto) 86.8 %; Platelet Count 153 K/uL (130-400); RDW Coefficient of Variation 17.4 % (11.5-14.5); RDW Standard Deviation 64.2 fL (36.4-46.3); Red Blood Count 3.36 M/uL (4.2-5.4); White Blood Count 7.38 K/uL (4.8-10.8)
[2019-03-28 06:14] LABS: Albumin Globulin Ratio 0.7 (0.9-2); Albumin Level 2.1 gm/dl (3.4-5.0); BUN Creatinine Ratio 21.4 (10-20); Bilirubin,Total 0.9 mg/dl (0.2-1); Calcium 9.4 mg/dl (8.5-10.1); Creatinine Clr Calc Pharmacy 35.1 ml/min; Est GFR (African American) 61.2; Est GFR (Non-African American) 52.8; Globulin 3.2 gm/dl (2.5-4.0); Potassium 3.7 mmol/L (3.5-5.1); Total Protein 5.3 gm/dl (6.4-8.2)
[2019-03-28] MEDS: SODIUM CHLORIDE 0.9% 1000ML 1,000 ML IV SCH ×2 (08:01→14:59)
[2019-03-28] MEDS: HEPARIN SOD 5,000 UNIT/0.5 ML VIAL SQ SCH ×2 (08:02→20:36)
[2019-03-28] MEDS: CARBIDOPA/LEVODOPA/ENTACAPONE PO SCH ×4 (08:39→20:37)
--- NOTE | 2019-03-28 09:43 | Hospitalist Progress Note ---
Date of Service March 28, 2019 Assessment & Plan (1) Acute respiratory failure with hypoxemia: Acute hypoxic respiratory failure 2/2 acute pneumonia: - based off family description of worsening ability to swallow medicines likely 2/2 aspiration; No history of COPD/asthma - Continue Zosyn; patient allergic to tetracyclines - nasal MRSA negative; stopped vanc - Flu negative - Lactate elevated to 2.1, repeat 1.8 Parkinson's: - patient has missed several doses of Stalevo over the last day prior to admission - NG tube placed for continued delivery of medications - Continue Stalevo 150 mg QID - Hold baclofen 10 mg twice daily due to cognitive status - will consider TF in AM Hypertension: - Hold spironolactone in the setting of pneumonia with volume depletion GERD: - hold protonix; restart once able to take p.o. meds Psoriatic arthritis: - Hold methotrexate History of HSV: - hold valacyclovir; restart once able to take p.o. meds Diet: NPO, NG tube in place for medications DVT prophylaxis: Heparin CODE STATUS: DNR/DNI (2) Lower extremity weakness: (3) Incontinence: (4) Sepsis: (5) Acute bronchitis: Admission and Anticipated Discharge Date Admission Date: March 27, 2019 Supervising Physician Co-Signing Physician Notes I personally examined the patient and verified all castrejon points of history and exam, discussed case, and agree with decision making with Dr Marsh. No meaningful HPI review of systems obtained from patient. notes a decline over about a week and a half, progressively worse oral intake, concern on if she was choking or aspirating, and then not able to take her medications. Vitals noted, in general she is laying in bed on her right side curled up responds a little to loud and repeated verbal stimuli. Vaguely endorses not feeling well. Lungs are crackly on the right clear on the left no wheezing no accessory muscles. Abdomen is soft she is may be vaguely tender throughout without any guarding rebound or rigidity. Extremities show no cyanosis clubbing or edema. She is equal muscle tone although she is fairly stiff, severe does no asymmetry no notable focal neuro deficitsalthough with her mental status the exam is very difficult. Failure to thrive/worsening/metabolic encephalopathyprobably related to pneumonia, as well as not being able to get her Parkinson's medications in. Pneumonia with acute hypoxic respiratory failure present on admission (manifest by her tachypnea and hypoxia of 88% on room air) with sepsis present on admission (manifest by her tachycardia and tachypnea, and later by fever)concern on aspiration pneumonia given the right side, her Parkinson's, and her overall pattern of decline. Certainly could be community-acquired as well, continue current antibiotics and follow closely. Speech eval and treat Parkinson'scertainly without being able to take her medicines part of her altered mental status/withdrawn state is likely lack of Parkinson's medications. Given that does not seem safe for her to swallow at this time, and there is no IV alternatives and helping with her Parkinson's, discussed with and will place NG tube in order to give her Parkinson's meds. If she does not wake up quickly (i.e. if her mental status is also more of a metabolic encephalopathy from the pneumonia than simply from withdrawal from her Parkinson's meds)then the tube can be used to help her nutritional status as well. Weaknesslikely acute on chronic multifactorial and due to all of the above. PT/OT eval and treat as she involved in her case Subjective Patient difficult to arouse this morning; family at bedside indicate that this has been going on for the last several weeks and she has been slowly regressing in the amount that she is able to do daily; has had some increased assisted falls, and decreased ability to swallow her Stalevo medication daily; doesn't normally miss doses but has missed the last two from yesterday and then the ones ear this morning. Review of Systems Review of Systems: Unobtainable due to reduced consciousness Physical Exam Constitutional: + thin and + physical limitations Respiratory: normal respiratory effort, lungs clear to auscultation Cardiovascular: Rate/Rhythm: regular rate and regular rhythm Heart Sounds: normal S1 and normal S2; no gallop, no murmur and no cardiac rub Vessels: no JVD Gastrointestinal (Abdomen): normal bowel sounds, soft, nontender, no hepatosplenomegaly Musculoskeletal: Extremities: + limited ROM of extremities and + muscle atrophy; no joint enlargement Neurologic: moves all extremities; no focal motor deficits Speech / Cognition: + abnormal cognition Cranial Nerves: PERRL Results & Data ([facility]) Vital Signs (Past 12 Hours) Vital Signs Temp Pulse Pulse Resp BP BP BP 03/28/19 07:49 37.6 C H 59 L 18 92/42 L 80/45 L 03/28/19 07:47 62 03/28/19 06:36 37.6 C H 03/28/19 04:00 38 C H 73 20 132/73 03/28/19 00:25 36.9 C 71 17 129/57 L 03/27/19 23:14 03/27/19 23:08 66 03/27/19 22:16 60 16 124/56 L 03/27/19 22:15 51 L 16 03/27/19 22:00 56 L 17 03/27/19 21:46 57 L 18 103/52 L 03/27/19 21:45 58 L 17 Pulse Ox Pulse Ox 03/28/19 07:49 94 03/28/19 07:47 03/28/19 06:36 03/28/19 04:00 93 03/28/19 00:25 94 03/27/19 23:14 94 03/27/19 23:08 03/27/19 22:16 100 03/27/19 22:15 99 03/27/19 22:00 97 03/27/19 21:46 98 03/27/19 21:45 99 Laboratory Results 03/28/19 03/28/19 03/28/19 Range/Units 10:09 05:17 05:17 WBC 7.38 (4.8-10.8) K/uL RBC 3.36 L (4.2-5.4) M/uL Hgb 11.2 L (12.0-16.0) g/dL Hct 34.1 L (37-47) % MCV 101.5 H (80-100) fL MCH 33.3 (25-34) pg MCHC 32.8 (32-36) g/dL RDW Std Deviation 64.2 H (36.4-46.3) fL RDW Coeff of Chandra 17.4 H (11.5-14.5) % Plt Count 153 (130-400) K/uL MPV 10.3 (7.4-10.4) fL Immature Gran % (Auto) 0.4 % Neut % (Auto) 86.8 % Lymph % (Auto) 8.1 % Pepin % (Auto) 4.3 % Eos % (Auto) 0.3 % Baso % (Auto) 0.1 % Immature Gran # (Auto) 0.03 H (0.00-0.02) K/uL Neut # (Auto) 6.40 (1.4-6.5) K/uL Lymph # (Auto) 0.60 L (1.2-3.4) K/uL Pepin # (Auto) 0.32 (0.11-0.59) K/uL Eos # (Auto) 0.02 (0-0.5) K/uL Baso # (Auto) 0.01 (0-0.2) K/uL PT (9.0-12.0) Seconds INR (0.9-1.1) APTT (21.0-31.0) Seconds PTT Ratio VBG pH 7.36 (7.36-7.41) VBG pCO2 48 (38-50) mmHg VBG pO2 33 mmHg VBG HCO3 27 mmol/L VBG O2 Saturation < 60.0 % VBG Base Excess 0.9 mEq/L Barometric Pressure 744.5 mm/Hg Sodium 138 (136-145) mmol/L Potassium 3.7 (3.5-5.1) mmol/L Chloride 109 H (98-107) mmol/L Carbon Dioxide 29 (21-32) mmol/L Anion Gap 0 L (3-11) BUN 22 H (7-18) mg/dl Creatinine 1.03 (0.6-1.2) mg/dl Est Cr Clr Drug Dosing 35.1 ml/min Est GFR ( Amer) 61.2 Est GFR (Non-Af Amer) 52.8 BUN/Creatinine Ratio 21.4 H (10-20) Glucose 102 H (70-99) mg/dl Lactate (0.4-2.0) mmol/L Calcium 9.4 D (8.5-10.1) mg/dl Magnesium (1.8-2.4) mg/dl Total Bilirubin 0.9 (0.2-1) mg/dl AST 19 (15-37) U/L ALT 7 L (12-78) U/L Alkaline Phosphatase 59 (45-117) U/L Troponin I (0-0.045) ng/ml Total Protein 5.3 L (6.4-8.2) gm/dl Albumin 2.1 L (3.4-5.0) gm/dl Globulin 3.2 (2.5-4.0) gm/dl Albumin/Globulin Ratio 0.7 L (0.9-2) Procalcitonin (0-0.5) ng/ml Urine Color Urine Appearance (Clear) Urine pH (4.5-7.5) Ur Specific [place] (1.000-1.030) Urine Protein (Negative) Urine Glucose (UA) (Negative) Urine Ketones (Negative) Urine Blood (Negative) Urine Nitrite (Negative) Urine Bilirubin (Negative) Urine Urobilinogen (Negative) Ur Leukocyte Esterase (Negative) Urine RBC (0-4) /hpf Urine WBC (0-5) /hpf Ur Epithelial Cells (0-5) /lpf Urine Bacteria (Negative) Nasal Screen MRSA (PCR) (Negative) Influenza Type A (PCR) (Neg) Influenza Type B (PCR) (Neg) 03/28/19 03/27/19 03/27/19 Range/Units 03:28 23:28 20:15 WBC (4.8-10.8) K/uL RBC (4.2-5.4) M/uL Hgb (12.0-16.0) g/dL Hct (37-47) % MCV (80-100) fL MCH (25-34) pg MCHC (32-36) g/dL RDW Std Deviation (36.4-46.3) fL RDW Coeff of Chandra (11.5-14.5) % Plt Count (130-400) K/uL MPV (7.4-10.4) fL Immature Gran % (Auto) % Neut % (Auto) % Lymph % (Auto) % Pepin % (Auto) % Eos % (Auto) % Baso % (Auto) % Immature Gran # (Auto) (0.00-0.02) K/uL Neut # (Auto) (1.4-6.5) K/uL Lymph # (Auto) (1.2-3.4) K/uL Pepin # (Auto) (0.11-0.59) K/uL Eos # (Auto) (0-0.5) K/uL Baso # (Auto) (0-0.2) K/uL PT (9.0-12.0) Seconds INR (0.9-1.1) APTT (21.0-31.0) Seconds PTT Ratio VBG pH (7.36-7.41) VBG pCO2 (38-50) mmHg VBG pO2 mmHg VBG HCO3 mmol/L VBG O2 Saturation % VBG Base Excess mEq/L Barometric Pressure mm/Hg Sodium (136-145) mmol/L Potassium (3.5-5.1) mmol/L Chloride (98-107) mmol/L Carbon Dioxide (21-32) mmol/L Anion Gap (3-11) BUN (7-18) mg/dl Creatinine (0.6-1.2) mg/dl Est Cr Clr Drug Dosing ml/min Est GFR ( Amer) Est GFR (Non-Af Amer) BUN/Creatinine Ratio (10-20) Glucose (70-99) mg/dl Lactate 1.8 2.1 H* (0.4-2.0) mmol/L Calcium (8.5-10.1) mg/dl Magnesium (1.8-2.4) mg/dl Total Bilirubin (0.2-1) mg/dl AST (15-37) U/L ALT (12-78) U/L Alkaline Phosphatase (45-117) U/L Troponin I (0-0.045) ng/ml Total Protein (6.4-8.2) gm/dl Albumin (3.4-5.0) gm/dl Globulin (2.5-4.0) gm/dl Albumin/Globulin Ratio (0.9-2) Procalcitonin (0-0.5) ng/ml Urine Color Urine Appearance (Clear) Urine pH (4.5-7.5) Ur Specific [place] (1.000-1.030) Urine Protein (Negative) Urine Glucose (UA) (Negative) Urine Ketones (Negative) Urine Blood (Negative) Urine Nitrite (Negative) Urine Bilirubin (Negative) Urine Urobilinogen (Negative) Ur Leukocyte Esterase (Negative) Urine RBC (0-4) /hpf Urine WBC (0-5) /hpf Ur Epithelial Cells (0-5) /lpf Urine Bacteria (Negative) Nasal Screen MRSA (PCR) Negative (Negative) Influenza Type A (PCR) (Neg) Influenza Type B (PCR) (Neg) 03/27/19 03/27/19 03/27/19 Range/Units 19:48 19:15 19:13 WBC (4.8-10.8) K/uL RBC (4.2-5.4) M/uL Hgb (12.0-16.0) g/dL Hct (37-47) % MCV (80-100) fL MCH (25-34) pg MCHC (32-36) g/dL RDW Std Deviation (36.4-46.3) fL RDW Coeff of Chandra (11.5-14.5) % Plt Count (130-400) K/uL MPV (7.4-10.4) fL Immature Gran % (Auto) % Neut % (Auto) % Lymph % (Auto) % Pepin % (Auto) % Eos % (Auto) % Baso % (Auto) % Immature Gran # (Auto) (0.00-0.02) K/uL Neut # (Auto) (1.4-6.5) K/uL Lymph # (Auto) (1.2-3.4) K/uL Pepin # (Auto) (0.11-0.59) K/uL Eos # (Auto) (0-0.5) K/uL Baso # (Auto) (0-0.2) K/uL PT (9.0-12.0) Seconds INR (0.9-1.1) APTT (21.0-31.0) Seconds PTT Ratio VBG pH 7.41 (7.36-7.41) VBG pCO2 48 (38-50) mmHg VBG pO2 23 mmHg VBG HCO3 30 mmol/L VBG O2 Saturation < 60.0 % VBG Base Excess 4.3 mEq/L Barometric Pressure 742.1 mm/Hg Sodium (136-145) mmol/L Potassium (3.5-5.1) mmol/L Chloride (98-107) mmol/L Carbon Dioxide (21-32) mmol/L Anion Gap (3-11) BUN (7-18) mg/dl Creatinine (0.6-1.2) mg/dl Est Cr Clr Drug Dosing ml/min Est GFR ( Amer) Est GFR (Non-Af Amer) BUN/Creatinine Ratio (10-20) Glucose (70-99) mg/dl Lactate (0.4-2.0) mmol/L Calcium (8.5-10.1) mg/dl Magnesium (1.8-2.4) mg/dl Total Bilirubin (0.2-1) mg/dl AST (15-37) U/L ALT (12-78) U/L Alkaline Phosphatase (45-117) U/L Troponin I (0-0.045) ng/ml Total Protein (6.4-8.2) gm/dl Albumin (3.4-5.0) gm/dl Globulin (2.5-4.0) gm/dl Albumin/Globulin Ratio (0.9-2) Procalcitonin 0.16 (0-0.5) ng/ml Urine Color [place] Urine Appearance Clear (Clear) Urine pH (4.5-7.5) Ur Specific [place] 1.019 (1.000-1.030) Urine Protein (Negative) Urine Glucose (UA) (Negative) Urine Ketones (Negative) Urine Blood (Negative) Urine Nitrite (Negative) Urine Bilirubin (Negative) Urine Urobilinogen (Negative) Ur Leukocyte Esterase (Negative) Urine RBC >30 H (0-4) /hpf Urine WBC >30 H (0-5) /hpf Ur Epithelial Cells 0-5 (0-5) /lpf Urine Bacteria 1+ H (Negative) Nasal Screen MRSA (PCR) (Negative) Influenza Type A (PCR) (Neg) Influenza Type B (PCR) (Neg) 03/27/19 03/27/19 03/27/19 Range/Units 19:13 19:13 19:13 WBC 9.65 (4.8-10.8) K/uL RBC 4.12 L (4.2-5.4) M/uL Hgb 14.1 (12.0-16.0) g/dL Hct 42.0 (37-47) % MCV 101.9 H (80-100) fL MCH 34.2 H (25-34) pg MCHC 33.6 (32-36) g/dL RDW Std Deviation 64.4 H (36.4-46.3) fL RDW Coeff of Chandra 17.5 H (11.5-14.5) % Plt Count 171 (130-400) K/uL MPV 10.5 H (7.4-10.4) fL Immature Gran % (Auto) 0.7 % Neut % (Auto) 89.7 % Lymph % (Auto) 4.6 % Pepin % (Auto) 4.9 % Eos % (Auto) 0.0 % Baso % (Auto) 0.1 % Immature Gran # (Auto) 0.07 H (0.00-0.02) K/uL Neut # (Auto) 8.66 H (1.4-6.5) K/uL Lymph # (Auto) 0.44 L (1.2-3.4) K/uL Pepin # (Auto) 0.47 (0.11-0.59) K/uL Eos # (Auto) 0.00 (0-0.5) K/uL Baso # (Auto) 0.01 (0-0.2) K/uL PT 11.3 (9.0-12.0) Seconds INR 1.1 (0.9-1.1) APTT 26.0 (21.0-31.0) Seconds PTT Ratio 1.0 VBG pH (7.36-7.41) VBG pCO2 (38-50) mmHg VBG pO2 mmHg VBG HCO3 mmol/L VBG O2 Saturation % VBG Base Excess mEq/L Barometric Pressure mm/Hg Sodium 136 (136-145) mmol/L Potassium 3.7 (3.5-5.1) mmol/L Chloride 103 (98-107) mmol/L Carbon Dioxide 28 (21-32) mmol/L Anion Gap 5.0 (3-11) BUN 23 H (7-18) mg/dl Creatinine 1.27 H (0.6-1.2) mg/dl Est Cr Clr Drug Dosing 28.4 ml/min Est GFR ( Amer) 47.5 Est GFR (Non-Af Amer) 41.0 BUN/Creatinine Ratio 18.2 (10-20) Glucose 151 H (70-99) mg/dl Lactate (0.4-2.0) mmol/L Calcium 11.2 H (8.5-10.1) mg/dl Magnesium 1.8 (1.8-2.4) mg/dl Total Bilirubin 0.8 (0.2-1) mg/dl AST 17 (15-37) U/L ALT 7 L (12-78) U/L Alkaline Phosphatase 76 (45-117) U/L Troponin I 0.038 (0-0.045) ng/ml Total Protein 6.3 L (6.4-8.2) gm/dl Albumin 2.6 L (3.4-5.0) gm/dl Globulin 3.7 (2.5-4.0) gm/dl Albumin/Globulin Ratio 0.7 L (0.9-2) Procalcitonin (0-0.5) ng/ml Urine Color Urine Appearance (Clear) Urine pH (4.5-7.5) Ur Specific [place] (1.000-1.030) Urine Protein (Negative) Urine Glucose (UA) (Negative) Urine Ketones (Negative) Urine Blood (Negative) Urine Nitrite (Negative) Urine Bilirubin (Negative) Urine Urobilinogen (Negative) Ur Leukocyte Esterase (Negative) Urine RBC (0-4) /hpf Urine WBC (0-5) /hpf Ur Epithelial Cells (0-5) /lpf Urine Bacteria (Negative) Nasal Screen MRSA (PCR) (Negative) Influenza Type A (PCR) (Neg) Influenza Type B (PCR) (Neg) 03/27/19 Range/Units 19:00 WBC (4.8-10.8) K/uL RBC (4.2-5.4) M/uL Hgb (12.0-16.0) g/dL Hct (37-47) % MCV (80-100) fL MCH (25-34) pg MCHC (32-36) g/dL RDW Std Deviation (36.4-46.3) fL RDW Coeff of Chandra (11.5-14.5) % Plt Count (130-400) K/uL MPV (7.4-10.4) fL Immature Gran % (Auto) % Neut % (Auto) % Lymph % (Auto) % Pepin % (Auto) % Eos % (Auto) % Baso % (Auto) % Immature Gran # (Auto) (0.00-0.02) K/uL Neut # (Auto) (1.4-6.5) K/uL Lymph # (Auto) (1.2-3.4) K/uL Pepin # (Auto) (0.11-0.59) K/uL Eos # (Auto) (0-0.5) K/uL Baso # (Auto) (0-0.2) K/uL PT (9.0-12.0) Seconds INR (0.9-1.1) APTT (21.0-31.0) Seconds PTT Ratio VBG pH (7.36-7.41) VBG pCO2 (38-50) mmHg VBG pO2 mmHg VBG HCO3 mmol/L VBG O2 Saturation % VBG Base Excess mEq/L Barometric Pressure mm/Hg Sodium (136-145) mmol/L Potassium (3.5-5.1) mmol/L Chloride (98-107) mmol/L Carbon Dioxide (21-32) mmol/L Anion Gap (3-11) BUN (7-18) mg/dl Creatinine (0.6-1.2) mg/dl Est Cr Clr Drug Dosing ml/min Est GFR ( Amer) Est GFR (Non-Af Amer) BUN/Creatinine Ratio (10-20) Glucose (70-99) mg/dl Lactate (0.4-2.0) mmol/L Calcium (8.5-10.1) mg/dl Magnesium (1.8-2.4) mg/dl Total Bilirubin (0.2-1) mg/dl AST (15-37) U/L ALT (12-78) U/L Alkaline Phosphatase (45-117) U/L Troponin I (0-0.045) ng/ml Total Protein (6.4-8.2) gm/dl Albumin (3.4-5.0) gm/dl Globulin (2.5-4.0) gm/dl Albumin/Globulin Ratio (0.9-2) Procalcitonin (0-0.5) ng/ml Urine Color Urine Appearance (Clear) Urine pH (4.5-7.5) Ur Specific [place] (1.000-1.030) Urine Protein (Negative) Urine Glucose (UA) (Negative) Urine Ketones (Negative) Urine Blood (Negative) Urine Nitrite (Negative) Urine Bilirubin (Negative) Urine Urobilinogen (Negative) Ur Leukocyte Esterase (Negative) Urine RBC (0-4) /hpf Urine WBC (0-5) /hpf Ur Epithelial Cells (0-5) /lpf Urine Bacteria (Negative) Nasal Screen MRSA (PCR) (Negative) Influenza Type A (PCR) Neg for Influ A (Neg) Influenza Type B (PCR) Neg for Influ B (Neg) Medications Administered Current Inpatient Medications Acetaminophen (Tylenol) 500 mg PO Q4H PRN PRN Reason: Fever Stop: 04/27/19 04:24 Carbidopa/Levodopa/Entacapone (Stalevo) 1 ea PO QID KIANA Stop: 04/27/19 08:59 Last Admin: 03/28/19 08:39 Dose: Not Given Documented by: Heparin Sodium (Porcine) (Heparin Sodium (Porcine)) 5,000 units SQ Q12 KIANA Stop: 04/27/19 08:59 Last Admin: 03/28/19 08:02 Dose: 5,000 units Documented by: Piperacillin Sod/Tazobactam (Sod 3.375 gm/ Dextrose) 115 mls @ 28.75 mls/hr IV Q8H KIANA; Protocol Stop: 04/04/19 01:59 Last Admin: 03/28/19 10:26 Dose: 28.8 mls/hr Documented by: Sodium Chloride (Nss 1000ml) 1,000 mls @ 125 mls/hr IV .Q8H KIANA Stop: 04/26/19 23:13 Last Admin: 03/28/19 08:01 Dose: 125 mls/hr Documented by: Acetaminophen (Ofirmev) 1,000 mg in 100 mls @ 400 mls/hr IV Q8H PRN PRN Reason: Fever Stop: 03/31/19 04:38 Last Infusion: 03/28/19 06:04 Dose: Infused Documented by: Ioversol (Optiray 320 125ml) 119 ml IV ONCE PRN PRN Reason: Interaction Checking Stop: 03/31/19 20:21 Last Admin: 03/27/19 20:22 Dose: 119 ml Documented by: Miscellaneous Information (Consult) 1 ea N/A UD PRN PRN Reason: Consult Stop: 04/26/19 23:13 Miscellaneous Information (Consult) 1 ea N/A UD PRN PRN Reason: Consult Stop: 04/26/19 23:13 Neupro~Non-Formulary (Patient's Own Med) 1 ea EXT DAILY KIANA Stop: 04/27/19 08:59 Pantoprazole Sodium (Protonix) 40 mg PO QAM KIANA Stop: 04/27/19 08:59 Resident Activity Tracking Resident Involvement: Resident Care Provided Care Provided: Adult [facility]
[2019-03-28 10:23] LABS: Base Excess VBG 0.9 mEq/L; HCO3 VBG 27 mmol/L; Oxygen Saturation VBG < 60.0 %; PCO2 VBG 48 mmHg (38-50); PO2 VBG 33 mmHg; pH VBG 7.36 (7.36-7.41)
--- NOTE | 2019-03-28 13:10 | XRay Report ---
XR KUB/Abdomen 1 view CLINICAL HISTORY: 78 years-old Female presenting with NG placement. TECHNIQUE: Single semierect view of the upper abdomen was obtained. COMPARISON: 09/05/[address] from 03/27/2019. FINDINGS: Nasogastric tube terminates in the distal stomach, sidehole also within the gastric lumen. Nonobstruc tive bowel gas pattern. No gross pneumoperitoneum. Degenerative changes of the spine. Atherosclerosis of the aortic arch. Cardiac silhouette enlarged. P atchy dense pulmonary opacities. IMPRESSION: 1. Appropriately positioned nasogastric tube. 2. Bilateral pulmonary infiltrates. ACT 112: Negative or not required by law. Electronically signed by: Jacinto Huber M.D. 03/28/2019 1:08 PM
[2019-03-28] MEDS: PANTOprazole 40 MG TAB PO SCH (14:11)
[2019-03-28] MEDS: NEUPRO EXT SCH (14:11)
[2019-03-28] MEDS ORDERED: MICONAZOLE NITRATE POWDER 43 GM EXT PRN (17:37)
--- NOTE | 2019-03-28 19:20 | Billing Data ---
Date of Service March 28, 2019 Coding Level of Care Code 86842 Subseq Hosp Care Lvl 3
--- NOTE | 2019-03-28 20:58 | Electrocardiogram Report ---
Test Reason : Blood Pressure : / mmHG Vent. Rate : 108 BPM Atrial Rate : 108 BPM P-R Int : 122 ms QRS Dur : 112 ms QT Int : 328 ms P-R-T Axes : 088 -40 051 degrees QTc Int : 439 ms Poor data quality, interpretation may be adversely affected Sinus tachycardia with Premature supraventricular complexes Left axis deviation Minimal voltage criteria for LVH, may be normal variant Abnormal ECG When compared with ECG of 28-JAN-2019 19:59, Premature supraventricular complexes are now Present Confirmed by Uriah Metzger ([id number]) on 03/28/2019 8:57:39 PM Referred By: REFERRED SELF Confirmed By:Uriah Metzger
--- NOTE | 2019-03-28 23:41 | Billing Data ---
Date of Service March 28, 2019 Coding Level of Care Code 57609 Initial Inpt Care Lvl 3
[2019-03-29] MEDS: SODIUM CHLORIDE 0.9% 1000ML 1,000 ML IV SCH ×2 (00:11→07:57)
[2019-03-29] MEDS: PIPERACILLIN/TAZOBACTAM 3.375 GM in DEXTROSE 5% 100 ML IV SCH ×2 (03:02→10:10)
[2019-03-29 06:22] LABS: Basophils # (auto) 0.01 K/uL (0-0.2); Basophils % (auto) 0.1 %; Hematocrit (blood only) 35.2 % (37-47); Hemoglobin 11.3 g/dL (12.0-16.0); Immature Granulocytes # (auto) 0.01 K/uL (0.00-0.02); Immature Granulocytes % (auto) 0.1 %; Lymphocytes # (auto) 0.76 K/uL (1.2-3.4); Lymphocytes % (auto) 8.1 %; Mean Corpuscular Hemoglobin 33.1 pg (25-34); Mean Corpuscular Hgb Conc 32.1 g/dL (32-36); Mean Corpuscular Volume 103.2 fL (80-100); Mean Platelet Volume 9.8 fL (7.4-10.4); Monocytes # (auto) 0.02 K/uL (0.11-0.59); Monocytes % (auto) 0.2 %; Neutrophils # (auto) 8.59 K/uL (1.4-6.5); Neutrophils % (auto) 91.5 %; Platelet Count 187 K/uL (130-400); RDW Coefficient of Variation 17.3 % (11.5-14.5); RDW Standard Deviation 64.6 fL (36.4-46.3); Red Blood Count 3.41 M/uL (4.2-5.4); White Blood Count 9.39 K/uL (4.8-10.8)
[2019-03-29 06:59] LABS: BUN Creatinine Ratio 22.4 (10-20); Calcium 8.1 mg/dl (8.5-10.1); Creatinine Clr Calc Pharmacy 35.8 ml/min; Est GFR (African American) 62.6; Potassium 3.3 mmol/L (3.5-5.1)
--- NOTE | 2019-03-29 07:08 | Hospitalist Progress Note ---
Date of Service March 29, 2019 Assessment & Plan (1) Acute respiratory failure with hypoxemia: Acute hypoxic respiratory failure 2/2 acute pneumonia: - based off family description of worsening ability to swallow medicines likely 2/2 aspiration; No history of COPD/asthma - Continue Zosyn; patient allergic to tetracyclines - nasal MRSA negative; stopped vanc - Flu negative - Lactate elevated to 2.1, repeat 1.8 Parkinson's: - patient has missed several doses of Stalevo over the last day prior to admission - NG tube placed for continued delivery of medications - Continue Stalevo 150 mg QID - Hold baclofen 10 mg twice daily due to cognitive status - will consider TF in AM Hypertension: - Hold spironolactone in the setting of pneumonia with volume depletion GERD: - hold protonix; restart once able to take p.o. meds Psoriatic arthritis: - Hold methotrexate History of HSV: - hold valacyclovir; restart once able to take p.o. meds Diet: NPO, NG tube in place for medications DVT prophylaxis: Heparin CODE STATUS: DNR/DNI Admission and Anticipated Discharge Date Admission Date: March 27, 2019 Physical Exam Constitutional: + thin and + physical limitations Respiratory: normal respiratory effort, lungs clear to auscultation Cardiovascular: Rate/Rhythm: regular rate and regular rhythm Heart Sounds: normal S1 and normal S2; no gallop, no murmur and no cardiac rub Vessels: no JVD Gastrointestinal (Abdomen): normal bowel sounds, soft, nontender, no hepatosplenomegaly Musculoskeletal: Extremities: + limited ROM of extremities and + muscle atrophy; no joint enlargement Neurologic: moves all extremities; no focal motor deficits Speech / Cognition: + abnormal cognition Cranial Nerves: PERRL Results & Data ([facility]) Vital Signs (Past 12 Hours) Vital Signs Temp Pulse Pulse Resp BP Pulse Ox 03/29/19 03:38 37.1 C 76 20 103/56 L 96 03/29/19 00:15 68 03/28/19 22:21 37.2 C 88 16 90 03/28/19 20:55 38.0 C H 03/28/19 20:13 39.5 C H 89 16 108/58 L 89 L
[2019-03-29] MEDS: HEPARIN SOD 5,000 UNIT/0.5 ML VIAL SQ SCH (09:46)
[2019-03-29] MEDS: NEUPRO EXT SCH (09:47)
[2019-03-29] MEDS: PANTOprazole 40 MG TAB PO SCH (09:48)
[2019-03-29] MEDS: CARBIDOPA/LEVODOPA/ENTACAPONE PO SCH (09:48)
[2019-03-29] MEDS ORDERED: FAMOTIDINE 20 MG in SYRINGE 3 ML IV SCH (10:00)
--- NOTE | 2019-03-29 13:41 | Discharge Summary ---
Date of Service March 29, 2019 Admission HPI Per Admitting Provider Today is a 78-year-old female with past medical history of Parkinson's disease, psoriatic arthritis on methotrexate therapy, hypertension, hypercholesterolemia, recurrent UTIs, cervical spondylosis with myelopathy status post decompression surgery and rehab, GERD, and osteoporosis. She presents to the emergency department at 's concern for increased weakness and lethargy for 1 day. History is completed at the bedside with the assistance of her , patient is lethargic, and arouses transiently to sternal rub before falling back asleep and does not give meaningful answers to questions. Patient's reports she was with a gradually decreasing appetite over the previous few days. He noticed her becoming weaker with a decrease in energy and more difficulty ambulating the previous Sunday through Sunday. She had a couple of episodes on standing of blank staring for about 30 seconds with her legs giving out underneath her. He is not sure she was very weak and syncopal or was having blank absence spells. She had no shaking, no incontinence, no tongue biting during these episodes. He reports that she is normally alert, although not very chatty. She is normally oriented to name and can answer questions, but has had increasing disorientation to date/month/year over the previous few months. On day of admission he said that she was very weak, and unable to sustain her own body weight when trying to transfer with assistance from her for a wheelchair to the toilet. When he checked her temperature by axillary thermometer she was slightly over 100.0 F. Her was concerned about a UTI which has appeared similar for her in the past. She was seen by her primary care provider about 2 weeks ago for initial weakness and was placed on 10 days of ciprofloxacin for UTI which she completed last night. denies recent cough, shortness of breath, respiratory symptoms, diarrhea, constipation, abdominal pain or other new symptoms in his in the previous few days. reports that she has baseline is normally able answer questions as above, although she has slowly progressive Parkinson's disease controlled on Stalevo 4 times daily. She has more hypertonicity than tremors, she has been followed on outpatient who are balancing the Stalevo against baclofen 10 mg 3 times daily. Medical history: Reviewed in EMR Surgical history: Reviewed in EMR. Significant for neck surgery and stenosis decompression about 5 years ago. Allergies: Tetracycline, cefuroxime: GI symptoms). Additional allergies reviewed in EMR with the patient's , only rash/swelling allergies are to tetracycline and shellfish. Social history: No current or former tobacco use. No alcohol use. No recreational drug use. She lives with her at home who assists her with ambulation. She was in an LTAC after neck surgery as above for rehab. CODE STATUS: DNR/DNI, discussed with patient's . Principal Diagnosis Cardiac Arrest () Discharge Exam Discharge Data Allergies Allergy/AdvReac Type Severity Reaction Status Date / Time tetracycline Allergy Mild RASH Verified 03/27/19 19:00 lactose Allergy Unknown Gastrointestinal Verified 03/27/19 19:00 Upset lanolin Allergy Unknown BURNING Verified 03/27/19 19:00 shellfish derived Allergy Unknown SOB, Verified 03/27/19 19:00 SWELLING nitrofurantoin AdvReac Intermediate GI Verified 03/27/19 19:00 SYMPTOMS-ON OCC cefuroxime AdvReac Unknown G I UPSET Verified 03/27/19 19:00 cinnamon AdvReac Unknown IN RAW Verified 03/27/19 19:00 FORM CAUSES GI UPSET Quinolones AdvReac Unknown "GI Verified 03/27/19 19:00 symptoms" Sulfa (Sulfonamide AdvReac Unknown "GI Verified 03/27/19 19:00 Antibiotics) SYMPTOMS" Consultations 03/27/19 21:41 ED Decision to Admit Stat Ordered Studies 03/27/19 18:33 CT abd pelvis wo con Stat CT head/brain wo con Stat Hospital Course (1) Cardiac arrest: Maura Rocha was being seen and evaluated for worsening condition in the setting of Parkinson's with decreased ability to swallow medications and concern for aspiration of oral intake. This morning was being cleaned by staff when she suddenly stopped talking and subsequently stopped breathing. Vitals were taken at this time, and with an oxygen saturation of 23% a Code Talha was called given her DNR/DNI status. After no pulse was palpated in bilateral carotid, radial, and femoral arteries; a doppler ultrasound over the right femoral did not reveal any pulse, and there was no cardiac electrical activity. Time of was called as 10:54am. Total Time Total Time Spent Total Time Spent (In Minutes): >30 Discharge Plan Discharge Items Patient Disposition: Reason For Visit: AHRF,PNA Discharge Diagnosis: Cardiac Arrest Follow-up/Referrals: Mando Cedeño MD [Primary Care Provider] - Addtl Attending Provider Instructions: Maura Rocha was admitted for concern of continued decline in her daily abilities, and decline in her ability to swallow medications. As a result of this, with the images that we took of her chest it was discovered that she had a pneumonia that was likely due to food going into her lungs. Unfortunately, during the course of her treatment she spontaneously stopped breathing and her heart stopped. Admission Data Admit Date/Time: 03/27/19 22:18 Other DC Date/Time DO NOT enter until pt leaves facility: 03/29/19 13:30 Supervising Physician Co-Signing Physician Notes I personally examined the patient and verified all castrejon points of history and exam, discussed case, and agree with decision making with Dr Marsh. Case discussed with Dr. Marshpatient was actually looking better this morning when he saw her, and then suddenly declined. We responded immediately to the code purple, but at the point that we were at the bedside she was already pulseless with agonal respirations. In discussion with nursing, and with [employer] staff that was rolling her, she apparently was in the same state of improvement seen by Dr. Marsh and then while they were helping her get cleaned up she suddenly and almost immediately went from that state of health to a state of unresponsive pulselessness with agonal respirations. Vitals as in the EMR, patient completely unresponsive and pulseless with gasping respirations, no heart tones auscultated, no responsiveness. Arrestgiven that the patient did not want resuscitated, CPR/ACLS was not initiated, but it was very clear that she had a catastrophic eventprobably some form of cardiac arrestthat happened quite suddenly. This seems to have been unrelated to her aspiration/pneumonia, given that she did not show any deterioration in a progressive respiratory failure pattern (even abruptly), or any sepsis/shock pattern. She simply almost immediately ceased breathing. Empathy and support offered to , family friends (1 of which is a retired family physician) were present and situation discussed with them in the presence of the patient's . Time of 10:54 AM. Otherwise as above. Aspiration pneumonia had been under treatment, aspiration appears to have been from progressive Parkinson's, delirium/encephalopathygiven that she improved so much overnightwas almost certainly related to not being able to get her Parkinson's medications and while she was ill at home. Resident Activity Tracking Resident Involvement: Resident Care Provided Care Provided: Adult Hospital Medicine
--- NOTE | 2019-03-29 13:45 | Death Summary ---
Date of Service March 29, 2019 Pronouncement Note Contributing Factors (1) Cardiac arrest: Contributing factors: Maura Rocha was being seen and evaluated for worsening condition in the setting of Parkinson's with decreased ability to sw allow medications and concern for aspiration of oral intake. This morning was being cleaned by staff when she suddenly stopped talking and subsequently stopped breathing. Vitals were taken at this time, and with an oxygen saturation of 23% a Code Purple was called given her DNR/DNI status. Dr. Jules and myself responded to the code and examined the patient, after no pulse was palpated in bilateral carotid, radial, and femoral arteries; a doppler ultrasound over the right femoral did not reveal any pulse, and there was no cardiac electrical activity. Time of was called as 10:54am on March 29, 2019. Additional Data Attending physician: Chacorta Jules DO Supervising Physician Co-Signing Physician Notes I personally examined the patient and verified all castrejon points of history and exam, discussed case, and agree with decision making with Dr Marsh. Resident Activity Tracking Resident Involvement: Resident Care Provided Care Provided: Adult [facility] Medicine
== END 2019-03-29 13:30 | disposition expired | DRG 871 ==
LOC: ED 18:23 → 2N 22:18 → SUATTDRO 22:18 → 2N 22:39